=== PATIENT | female | born 1950 | race Caucasian/White ===

== ENCOUNTER 2020-03-02 15:09 | Outpatient (CLI) | payer MEDICARE, SELFPAY ==
--- NOTE | ~2020-03-02 | CT_ITS ---
EXAMINATION: CT abdomen pelvis wo con EXAM DATE: 03/02/2020 15:38 INDICATION: Right flank pain; stone protocol. TECHNIQUE: Spiral CT of the abdomen and pelvis was performed without contrast. Axial, coronal and sag ittal images were reviewed. The dose-length product (DLP) for this examination was 1449.97 mGy-cm. The exposure was tailored according to patient size (auto mA exposure control), and iterative reconst ruction (ASIR) was used as additional dose reduction technique. There is no prior study for comparis on. FINDINGS: Punctate left inferior calyceal stone. No ureteral stones or hydronephrosis. The uterus is not identified and has likely been surgically resected. The bladder is unremarkable. The liver, sp willa, adrenal glands and pancreas are unremarkable. There are cholecystectomy clips. Small umbilical fat-containing hernia. There is no retroperitoneal or pelvic lymphadenopathy. There is mild scatt ered arteriosclerotic disease. The appendix is normal. The stomach and small bowel are unremarkable. There is mild to moderate scat tered colonic diverticulosis. There is no adjacent inflammatory change to suggest diverticulitis. Th ere is expected amount of colonic stool. No free intraperitoneal gas. Mild cardiomegaly. The hu g bases are unremarkable. There is a hemangioma within the T7 vertebral body. IMPRESSION: 1. Punctate left nephrolithiasis. 2. Mild to moderate colonic diverticulosis. 3. Small umbilical hernia. 4. No acute findings. Reviewed, dictated and finalized at location A. [employer]
== END 2020-03-02 15:10 | disposition home or self-care (01) ==
LOC: ANHIMG 15:18
PROVIDERS: PCP Family Medicine; Visit Provider Physician Assistant
DX: N20.0 Calculus of kidney (principal); K57.30 Diverticulosis of large intestine without perforation or abscess without bleeding; K42.9 Umbilical hernia without obstruction or gangrene
CPT/HCPCS: 74176

== ENCOUNTER 2020-12-05 14:54 | Emergency (ER) | payer MEDICARE, SELFPAY ==
[2020-12-05 15:00] VITALS: BP 166/67; PULSE 64; RESP 18; TEMP 36; O2SAT 100
--- NOTE | 2020-12-05 15:02 | ED.BACK ---
HPI - Back Pain/Injury General Chief Complaint: Back Pain/Injury Stated Complaint: pain between shoulder blades Time Seen by Provider: 12/05/20 15:02 Source: patient and RN notes reviewed Mode of arrival: ambulatory Limitations: no limitations History of Present Illness HPI Narrative: 70-year-old female presents to the [facility] with complaints of back pain after pulling weeds in her yard. Pain is worse with movement. Has a history of back pain for many years, states the weeds just aggravated it. Took some Tylenol yesterday and currently has a pain patch on it. Had been prescribed prednisone weeks ago by her primary for the same issue but never took them. Patient plans to be taking the prednisone tonight Denies any numbness or tingling. No chest pain or shortness of breath. No abdominal pain. Related Data Home Medications Medication Instructions Recorded Confirmed cholecalciferol (vitamin D3) 125 125 mcg PO DAILY 12/31/19 03/07/20 mcg (5,000 unit) capsule glucosamine [id number] 1 tablet PO DAILY 12/31/19 03/07/20 joselyn 1,500 mg-400 unit-100 mg tablet Allergies Allergy/AdvReac Type Severity Reaction Status Date / Time aspirin Allergy Unknown Nausea Verified 11/28/20 14:11 atorvastatin Allergy Unknown muscle Verified 11/28/20 14:11 cramps celecoxib Allergy Unknown Itching Verified 11/28/20 14:11 ezetimibe Allergy Unknown leg cramps Verified 11/28/20 14:11 fenofibrate Allergy Unknown Skin Verified 11/28/20 14:11 Reaction omega-3 acid ethyl esters Allergy Unknown Nausea Verified 11/28/20 14:11 [Lovaza] pitavastatin [Livalo] Allergy Unknown Nausea Verified 11/28/20 14:11 rosuvastatin Allergy Unknown leg cramps Verified 11/28/20 14:11 simvastatin [Vytorin] Allergy Unknown leg cramps Verified 11/28/20 14:11 Review of Systems Review of Systems: All systems reviewed & are unremarkable except as noted in HPI and below Constitutional: Constitutional: Reports no additional constitutional complaints, Denies chills and Denies fever(s) Eyes: Eyes: Reports no additional eye complaints ENT: Reports system reviewed and no additional complaints, except as documented Cardiovascular: Cardiovascular: Reports no additional cardiovascular complaints and Denies chest pain Respiratory: Respiratory: Reports no additional respiratory complaints, Denies cough, Denies dyspnea and Denies wheezing Gastrointestinal: Gastrointestinal: Reports no additional gastrointestinal complaints Musculoskeletal: Musculoskeletal: Reports as per HPI, Reports back pain (Upper around left scapula), Denies myalgias, Denies arthralgias, Denies joint swelling and Denies muscle cramps Integumentary/Breasts: Skin/Breast: Reports system reviewed and no additional complaints, except as docu Neurologic: Reports system reviewed and no additional complaints, except as documented Psychiatric: Psychiatric: Reports no additional psychiatric complaints Allergic/Immunologic: Allergic/Immunologic: Reports no additional allergic/immunologic complaints [facility] Past Medical History Medical History TMJ (dislocation of temporomandibular joint) Surgical History Surgical History H/O neck surgery H/O: hysterectomy History of cholecystectomy History of knee replacement (~03/2008) Family History Family History Father Family history of malignant neoplasm, Onset Age: 52 Patient's father is Mother Family history of malignant neoplasm Hypertension Carcinoma of colon, Onset Age: 61 Sibling Carcinoma of colon Other Diabetes mellitus Family history of allergic disorder Social History Social History Alcohol intake: never Comments At the time of my signature, I reviewed and agree with the nursing past medical, surgical, social, and famil
== END 2020-12-05 15:22 | disposition home or self-care (01) ==
PROVIDERS: Emergency Provider Nurse Practitioner; PCP Family Medicine
DX: M54.6 Pain in thoracic spine (principal); Z96.659 Presence of unspecified artificial knee joint; I10 Essential (primary) hypertension; E03.9 Hypothyroidism, unspecified
CPT/HCPCS: 99213; G0463

== ENCOUNTER → 2020-12-06 13:57 | Outpatient (CLI) | payer MEDICARE, SELFPAY ==
--- NOTE | ~2020-12-06 | XR_ITS ---
EXAMINATION: XR shoulder LT min 2V DATE: 12/06/2020 14:28 INDICATION: Left shoulder pain. TECHNIQUE: 4 views of left shoulder were obtained. COMPARISON: None. FINDINGS: Bone alignment is normal. No fracture. There is mild osteoarthritis of glenohumeral joint a nd severe osteoarthritis of acromioclavicular joint. There are changes of anterior fusion procedure i n cervical spine. IMPRESSION: 1. Polyarticular osteoarthritis. Reviewed, dictated and finalized at location A.
--- NOTE | ~2020-12-06 | XR_ITS ---
XR lumbar spine 2-3V 12/06/2020 14:28 Indication: Back pain Procedure: 3 views lumbar spine Comparison: 05/07/2010 Findings: There is disc narrowing at all lumbar levels which has progressed since prior examination. There is moderate multilevel facet hypertrophy with grade 1 degenerative spondylolisthesis at L4-5. V ertebral body heights are preserved. No acute fracture. Mild dextrocurvature of the lumbar spine. The re are cholecystectomy clips. Impression: 1: Interval progression of moderate-severe lumbar spondylosis. Reviewed, dictated and finalized at location A. Impression: 1: Interval progression of moderate-severe lumbar spondylosis.
== END ==
PROVIDERS: PCP Family Medicine; Visit Provider Physician Assistant
DX: M47.896 Other spondylosis, lumbar region (principal); M19.012 Primary osteoarthritis, left shoulder
CPT/HCPCS: 72100; 73030

== ENCOUNTER 2021-02-27 08:35 | Outpatient (CLI) | payer MEDICARE, SELFPAY ==
--- NOTE | ~2021-02-27 | MM_ITS ---
EXAMINATION: MM screening constantin BI w coby HISTORY: Screening mammogram, family history of breast cancer in her sister. TECHNIQUE: Craniocaudal and mediolateral oblique 3-D tomosynthesis images were obtained and synthetic 2-D images were generated. CAD analysis was submitted and interpreted. COMPARISON: 03/11/2018, 03/07/2017, 02/16/2016 BREAST PARENCHYMAL COMPOSITION: The breasts are heterogeneously dense, which may obscure small masses . FINDINGS: There is no evidence of suspicious mass, calcification, or architectural distortion to sugg est malignancy in either breast. There has been no suspicious interval change. IMPRESSION: 1. No mammographic evidence of malignancy. 2. Recommend routine screening mammography in one year. BI-RADS Category 1: Negative Reviewed, dictated and finalized at location A. CONSULTANT
== END 2021-02-27 08:36 | disposition home or self-care (01) ==
PROVIDERS: PCP Family Medicine; Visit Provider Obstetrics & Gynecology
DX: Z12.31 Encounter for screening mammogram for malignant neoplasm of breast (principal)
CPT/HCPCS: 77063; 77067

== ENCOUNTER → 2021-12-05 12:51 | Outpatient (CLI) | payer MEDICARE, SELFPAY ==
--- NOTE | ~2021-12-05 | XR_ITS ---
XR hip LT 2V w AP pelvis 12/05/2021 13:03 Indication: Left hip pain Procedure: 3 views left hip Comparison: 10/13/2018 Findings: Mild osteoarthritis of the left hip. No fracture, subluxation or dislocation. Pelvic rings are intact. Sacral foramen are symmetric. No significant soft tissue abnormality. Nonobstructive annia l gas pattern. Moderate colonic fecal loading. Impression: 1: Mild osteoarthritis of the left hip. Reviewed, dictated and finalized at location A. Impression: 1: Mild osteoarthritis of the left hip.
== END ==
PROVIDERS: PCP Emergency Medicine; Visit Provider Physician Assistant
DX: M16.12 Unilateral primary osteoarthritis, left hip (principal)
CPT/HCPCS: 73502

== ENCOUNTER 2022-05-01 09:00 | Outpatient (CLI) | payer MEDICARE, SELFPAY ==
--- NOTE | ~2022-05-01 | MM_ITS ---
EXAMINATION: MM screening constantin BI w coby HISTORY: Screening mammogram TECHNIQUE: Craniocaudal and mediolateral oblique 3-D tomosynthesis images were obtained and synthetic 2-D images were generated. CAD analysis was submitted and interpreted. COMPARISON: 02/27/2021, 03/11/2018, 03/07/2017 bilateral screening mammogram examinations BREAST PARENCHYMAL COMPOSITION: There are scattered areas of fibroglandular density. FINDINGS: Biopsy marker on the right; history of prior benign right breast biopsy. Stable small opaci ty with benign-appearing microcalcifications in the posterior upper left breast, not significant penny ged since 03/07/2017. There is no evidence of suspicious mass, calcification, or architectural distor tion to suggest malignancy in either breast. There has been no suspicious interval change. IMPRESSION: 1. No mammographic evidence of malignancy. 2. Recommend routine screening mammography in one year. BI-RADS Category 2: Benign finding(s). Reviewed, dictated and finalized at location A. 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
== END 2022-05-01 09:01 | disposition home or self-care (01) ==
PROVIDERS: PCP Emergency Medicine; Visit Provider Obstetrics & Gynecology
DX: Z12.31 Encounter for screening mammogram for malignant neoplasm of breast (principal)
CPT/HCPCS: 77063; 77067

== ENCOUNTER 2022-05-02 01:06 | Day surgery (SDC) | payer MEDICARE, SELFPAY ==
[2022-04-18 09:45] VITALS: BMI 31.1
[2022-04-25 07:50] VITALS: BP 113/75; PULSE 67; RESP 13; O2SAT 98
--- NOTE | 2022-05-01 13:10 | PM.HPGS ---
History of Present Illness History of Present Illness Consent: Risks, benefits, and alternatives have been discussed and questions answered. Patient agrees to proceed with procedure. Chief complaint: neoplasm screening Narrative: Cassandra Romero is a 71 year old female Referred for colon cancer screening. Her last colonoscopy was 5 years ago. Her mother and sister have had colon cancer. She herself has had a polyp in the past. 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 Surgical History Surgical History H/O cervical spine surgery H/O neck surgery H/O: hysterectomy History of cholecystectomy History of knee replacement (~03/2008) Family History Family History Father Family history of malignant neoplasm, Onset Age: 52 Patient's father is Mother Family history of malignant neoplasm Hypertension Carcinoma of colon, Onset Age: 61 Sibling Carcinoma of colon Other Diabetes mellitus Family history of allergic disorder Social History Social History Smoking status: Never smoker Alcohol intake: never Substance use type: does not use Living arrangements: with family Spiritual care concerns: No Meds Home Medications and Allergies Home Medications Medication Instructions Recorded Confirmed Type glucosamine [id number] 1 tablet PO DAILY 12/31/19 05/02/22 History joselyn 1,500 mg-400 unit-100 mg tablet (Glucosamine Daily Complex) metoprolol succinate 100 mg 100 mg PO DAILY #90 tabs 03/12/22 05/02/22 Rx tablet,extended release 24 hr losartan 50 mg-hydrochlorothiazide 1 tablet PO DAILY #90 tabs 04/08/22 05/02/22 Rx 12.5 mg tablet Liver Antioxidant Extract 1 cap PO DAILY 04/18/22 05/02/22 History Pc Liver And Brain Support 1 cap PO DAILY 04/18/22 05/02/22 History Phytoceramides 1 cap PO DAILY 04/18/22 05/02/22 History acai lloyd extract 500 mg capsule 500 mg PO DAILY 04/18/22 05/02/22 History levothyroxine 75 mcg tablet 75 mcg PO DAILY 04/18/22 05/02/22 History multivitamin 1 tablet PO DAILY 04/18/22 05/02/22 History omega 2-uvc-fak-fish oil 100 1 cap PO DAILY 04/18/22 05/02/22 History mg-150 mg-750 mg capsule tumeric 100 mg-danial 150 mg-olive 1 cap PO DAILY 04/18/22 05/02/22 History 50 mg-oreg 150 mg-caprylate capsule Allergies Allergy/AdvReac Type Severity Reaction Status Date / Time aspirin Allergy Unknown Nausea Verified 05/02/22 06:16 celecoxib Allergy Unknown Itching Verified 05/02/22 06:16 atorvastatin AdvReac Unknown muscle Verified 05/02/22 06:16 cramps ezetimibe AdvReac Unknown leg cramps Verified 05/02/22 06:16 fenofibrate AdvReac Unknown Skin Verified 05/02/22 06:16 Reaction omega-3 acid ethyl esters AdvReac Unknown Nausea Verified 05/02/22 06:16 [Lovaza] pitavastatin [Livalo] AdvReac Unknown Nausea Verified 05/02/22 06:16 rosuvastatin AdvReac Unknown leg cramps Verified 05/02/22 06:16 simvastatin [Vytorin] AdvReac Unknown leg cramps Verified 05/02/22 06:16 Exam Const: General: alert Orientation/consciousness: patient oriented x3 Resp: Auscultation: clear to auscultation bilaterally Cardio: Rhythm: regular rhythm GI: GI Palp: Yes Soft to palpation and No Tenderness to palpation present (GI) Neuro: General: patient oriented x3 Assessment and Plan Assessment and plan (1) Colon cancer screening: Code(s): Z12.11 - Encounter for screening for malignant neoplasm of colon Status: Acute Assessment and Plan: Colonoscopy with possible biopsy or polypectomy or cautery or injection of s
[2022-05-02 06:17] VITALS: BP 154/72; PULSE 58; RESP 16; TEMP 35.9; O2SAT 98
[2022-05-02] MEDS: LACTATED RINGERS 1,000 ML 150 ML IV CONT (06:20)
--- NOTE | 2022-05-02 06:44 | WPDANESEPPF ---
Anes - Initial Pre Proc Eval Procedure: Operation Date: 05/02/22 07:30 Proposed Procedures p Screening Colonoscopy - Brady Quach MD Date/Time: 05/02/22 06:44 Surgeon: Brady Quach MD Pre Op Diagnosis: neoplasm screening Patient Data Age: 71 Gender: F Height: 1.7 m Weight: 88.2 kg Last Vital Signs Temp 35.9 C L 05/02/22 06:17 Pulse 58 L 05/02/22 06:17 Resp 16 05/02/22 06:17 BP 154/72 H 05/02/22 06:17 Pulse Ox 98 05/02/22 06:17 O2 Del Method Room Air 05/02/22 06:17 Allergies Allergy/AdvReac Type Severity Reaction Status Date / Time aspirin Allergy Unknown Nausea Verified 05/02/22 06:16 celecoxib Allergy Unknown Itching Verified 05/02/22 06:16 atorvastatin AdvReac Unknown muscle Verified 05/02/22 06:16 cramps ezetimibe AdvReac Unknown leg cramps Verified 05/02/22 06:16 fenofibrate AdvReac Unknown Skin Verified 05/02/22 06:16 Reaction omega-3 acid ethyl esters AdvReac Unknown Nausea Verified 05/02/22 06:16 [Lovaza] pitavastatin [Livalo] AdvReac Unknown Nausea Verified 05/02/22 06:16 rosuvastatin AdvReac Unknown leg cramps Verified 05/02/22 06:16 simvastatin [Vytorin] AdvReac Unknown leg cramps Verified 05/02/22 06:16 Home Medications Medication Instructions Recorded Confirmed Type glucosamine [id number] 1 tablet PO DAILY 12/31/19 05/02/22 History joselyn 1,500 mg-400 unit-100 mg tablet (Glucosamine Daily Complex) metoprolol succinate 100 mg 100 mg PO DAILY #90 tabs 03/12/22 05/02/22 Rx tablet,extended release 24 hr losartan 50 mg-hydrochlorothiazide 1 tablet PO DAILY #90 tabs 04/08/22 05/02/22 Rx 12.5 mg tablet Liver Antioxidant Extract 1 cap PO DAILY 04/18/22 05/02/22 History Pc Liver And Brain Support 1 cap PO DAILY 04/18/22 05/02/22 History Phytoceramides 1 cap PO DAILY 04/18/22 05/02/22 History acai lloyd extract 500 mg capsule 500 mg PO DAILY 04/18/22 05/02/22 History levothyroxine 75 mcg tablet 75 mcg PO DAILY 04/18/22 05/02/22 History multivitamin 1 tablet PO DAILY 04/18/22 05/02/22 History omega 7-vhx-dsv-fish oil 100 1 cap PO DAILY 04/18/22 05/02/22 History mg-150 mg-750 mg capsule tumeric 100 mg-danial 150 mg-olive 1 cap PO DAILY 04/18/22 05/02/22 History 50 mg-oreg 150 mg-caprylate capsule Patient hx anesthesia problems: none Family hx anesthesia problems: none Results Review: All pre-operative results and documents have been reviewed as part of the pre-operative evaluation. 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 Surgical History Surgical History (Updated 05/02/22 @ 06:45 by Garth Cline MD) H/O cervical spine surgery H/O neck surgery H/O: hysterectomy History of cholecystectomy History of knee replacement (~03/2008) Family History Family History Father Family history of malignant neoplasm, Onset Age: 52 Patient's father is Mother Family history of malignant neoplasm Hypertension Carcinoma of colon, Onset Age: 61 Sibling Carcinoma of colon Other Diabetes mellitus Family history of allergic disorder Social History Social History Smoking status: Never smoker Alcohol intake: never Substance use type: does not use Living arrangements: with family Spiritual care concerns: No Anes - Eval Final PreProcedure Day of Procedure 05/02/22 06:44 Patient weight: obese Heart: regular rate and rhythm Lungs: clear to auscultation Airway: Mallampati scale class II Neurological: alert and oriented Last oral intake: >/= 8 hours ASA classification: II Emergent: no Anesthetic plan: proceed Anesthesia type and monitoring: general GIVS and standard monitoring Results Review: All pre-operative results and documen
[2022-05-02 07:50] VITALS: BP 118/58; PULSE 50; RESP 20; O2SAT 100
[2022-05-02 08:00] VITALS: BP 125/87; PULSE 52; RESP 19; O2SAT 99
[2022-05-02 08:10] VITALS: BP 110/77; PULSE 50; RESP 20; O2SAT 99
== END 2022-05-02 08:24 | disposition home or self-care (01) ==
PROVIDERS: PCP Emergency Medicine; Visit Provider Internal Medicine Gastroenterology
PROC: 0DJD8ZZ Inspection of Lower Intestinal Tract, Via Natural or Artificial Opening Endoscopic (ICD-10-PCS; CPT 45378; principal; 2022-05-02 07:30)
DX: Z12.11 Encounter for screening for malignant neoplasm of colon (principal); D12.5 Benign neoplasm of sigmoid colon; K57.30 Diverticulosis of large intestine without perforation or abscess without bleeding; Z80.0 Family history of malignant neoplasm of digestive organs; I10 Essential (primary) hypertension; E66.9 Obesity, unspecified; Z68.30 Body mass index [BMI] 30.0-30.9, adult
CPT/HCPCS: 45385; 88305; J2704; J7120

== ENCOUNTER 2023-03-18 00:45 | Day surgery (SDC) | payer MEDICARE, SELFPAY ==
[2023-03-07 10:19] VITALS: BMI 33.8
--- NOTE | 2023-03-14 10:08 | SUR.PREOP ---
Patient called regarding upcoming procedure. Reviewed preop instructions, appointment times, and procedure prep.
--- NOTE | 2023-03-14 14:09 | PM.HPGS ---
History of Present Illness History of Present Illness Consent: Risks, benefits, and alternatives have been discussed and questions answered. Patient agrees to proceed with procedure. Chief complaint: Dysphagia Narrative: Cassandra Romero is a 72 year old female Who feels that food gets stuck in her chest.? Primarily this happens with bread, sometimes meat.? It started perhaps 2 years ago and is sporadic.? She has not lost weight in fact has gained weight over the past year.? She denies chronic heartburn but occasionally will get heartburn if she drinks too much water before bedtime.? 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 Surgical History Surgical History H/O cervical spine surgery H/O neck surgery H/O: hysterectomy History of cholecystectomy History of knee replacement (~03/2008) Family History Family History Father Family history of malignant neoplasm, Onset Age: 52 Patient's father is Mother Family history of malignant neoplasm Hypertension Carcinoma of colon, Onset Age: 61 Sibling Carcinoma of colon Other Diabetes mellitus Family history of allergic disorder Social History Social History Smoking status: Never smoker Alcohol intake: never Substance use type: does not use Concerned About Future Housing: Decline to Answer Difficulty Paying Gas/Electric Bills: Decline to Answer Difficulty Paying for Meds: Decline to Answer Currently Unemployed: Decline to Answer Education: Decline to Answer Difficulty w/ Childcare or Family Care: Decline to Answer Living arrangements: with family Spiritual care concerns: No Meds Home Medications and Allergies Home Medications Medication Instructions Recorded Confirmed Type glucosamine [id number] 1 tablet PO DAILY 12/31/19 03/18/23 History joselyn 1,500 mg-400 unit-100 mg tablet (Glucosamine Daily Complex) Liver Antioxidant Extract 1 cap PO DAILY 04/18/22 03/18/23 History Pc Liver And Brain Support 1 cap PO DAILY 04/18/22 03/18/23 History Phytoceramides 1 cap PO DAILY 04/18/22 03/18/23 History multivitamin 1 tablet PO DAILY 04/18/22 03/18/23 History tumeric 100 mg-danial 150 mg-olive 1 cap PO DAILY 04/18/22 03/18/23 History 50 mg-oreg 150 mg-caprylate capsule metoprolol succinate 100 mg 100 mg PO DAILY #90 tabs 07/26/22 03/18/23 Rx tablet,extended release 24 hr losartan 50 mg-hydrochlorothiazide 1 tablet PO DAILY #90 tabs 02/07/23 03/18/23 Rx 12.5 mg tablet levothyroxine 75 mcg tablet 75 mcg PO DAILY #90 tabs 02/17/23 03/18/23 Rx omeprazole 20 mg capsule,delayed 20 mg PO .PRN 03/04/23 03/18/23 History release Allergies Allergy/AdvReac Type Severity Reaction Status Date / Time aspirin Allergy Unknown Nausea Verified 03/18/23 06:43 celecoxib Allergy Unknown Itching Verified 03/18/23 06:43 atorvastatin AdvReac Unknown muscle Verified 03/18/23 06:43 cramps ezetimibe AdvReac Unknown leg cramps Verified 03/18/23 06:43 fenofibrate AdvReac Unknown Skin Verified 03/18/23 06:43 Reaction omega-3 acid ethyl esters AdvReac Unknown Nausea Verified 03/18/23 06:43 [Lovaza] pitavastatin [Livalo] AdvReac Unknown Nausea Verified 03/18/23 06:43 rosuvastatin AdvReac Unknown leg cramps Verified 03/18/23 06:43 simvastatin [Vytorin] AdvReac Unknown leg cramps Verified 03/18/23 06:43 Exam Const: General: alert Orientation/consciousness: patient oriented x3 Resp: Auscultation: clear to auscultation bilaterally Cardio: Rhythm: regular rhythm GI: GI Palp: Yes Soft to palpatio
[2023-03-18 06:45] VITALS: BP 158/68; PULSE 67; RESP 17; TEMP 35.8; O2SAT 96; BMI 33.9
[2023-03-18] MEDS: LACTATED RINGERS 1,000 ML 150 ML IV CONT (06:54)
--- NOTE | 2023-03-18 07:43 | WPDANESEPPF ---
Anes - Initial Pre Proc Eval Procedure: Operation Date: 03/18/23 08:00 Proposed Procedures p Esophagogastroduodenoscopy - Brady Quach MD Date/Time: 03/18/23 07:43 Surgeon: Brady Quach MD Pre Op Diagnosis: Dysphagia Patient Data Age: 72 Gender: F Height: 1.7 m Weight: 98.3 kg Last Vital Signs Temp 96.4 F L 03/18/23 06:45 Pulse 67 03/18/23 06:45 Resp 17 03/18/23 06:45 BP 158/68 H 03/18/23 06:45 Pulse Ox 96 03/18/23 06:45 O2 Del Method Room Air 03/18/23 06:45 Allergies Allergy/AdvReac Type Severity Reaction Status Date / Time aspirin Allergy Unknown Nausea Verified 03/18/23 06:43 celecoxib Allergy Unknown Itching Verified 03/18/23 06:43 atorvastatin AdvReac Unknown muscle Verified 03/18/23 06:43 cramps ezetimibe AdvReac Unknown leg cramps Verified 03/18/23 06:43 fenofibrate AdvReac Unknown Skin Verified 03/18/23 06:43 Reaction omega-3 acid ethyl esters AdvReac Unknown Nausea Verified 03/18/23 06:43 [Lovaza] pitavastatin [Livalo] AdvReac Unknown Nausea Verified 03/18/23 06:43 rosuvastatin AdvReac Unknown leg cramps Verified 03/18/23 06:43 simvastatin [Vytorin] AdvReac Unknown leg cramps Verified 03/18/23 06:43 Home Medications Medication Instructions Recorded Confirmed Type glucosamine [id number] 1 tablet PO DAILY 12/31/19 03/18/23 History joselyn 1,500 mg-400 unit-100 mg tablet (Glucosamine Daily Complex) Liver Antioxidant Extract 1 cap PO DAILY 04/18/22 03/18/23 History Pc Liver And Brain Support 1 cap PO DAILY 04/18/22 03/18/23 History Phytoceramides 1 cap PO DAILY 04/18/22 03/18/23 History multivitamin 1 tablet PO DAILY 04/18/22 03/18/23 History tumeric 100 mg-danial 150 mg-olive 1 cap PO DAILY 04/18/22 03/18/23 History 50 mg-oreg 150 mg-caprylate capsule metoprolol succinate 100 mg 100 mg PO DAILY #90 tabs 07/26/22 03/18/23 Rx tablet,extended release 24 hr losartan 50 mg-hydrochlorothiazide 1 tablet PO DAILY #90 tabs 02/07/23 03/18/23 Rx 12.5 mg tablet levothyroxine 75 mcg tablet 75 mcg PO DAILY #90 tabs 02/17/23 03/18/23 Rx omeprazole 20 mg capsule,delayed 20 mg PO .PRN 03/04/23 03/18/23 History release Patient hx anesthesia problems: none Family hx anesthesia problems: none Results Review: All pre-operative results and documents have been reviewed as part of the pre-operative evaluation. 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 Surgical History Surgical History H/O cervical spine surgery H/O neck surgery H/O: hysterectomy History of cholecystectomy History of knee replacement (~03/2008) Family History Family History Father Family history of malignant neoplasm, Onset Age: 52 Patient's father is Mother Family history of malignant neoplasm Hypertension Carcinoma of colon, Onset Age: 61 Sibling Carcinoma of colon Other Diabetes mellitus Family history of allergic disorder Social History Social History Smoking status: Never smoker Alcohol intake: never Substance use type: does not use Concerned About Future Housing: Decline to Answer Difficulty Paying Gas/Electric Bills: Decline to Answer Difficulty Paying for Meds: Decline to Answer Currently Unemployed: Decline to Answer Education: Decline to Answer Difficulty w/ Childcare or Family Care: Decline to Answer Living arrangements: with family Spiritual care concerns: No Anes - Eval Final PreProcedure Day of Procedure 03/18/23 07:43 Patient weight: obese Heart: regular rate and rhythm Lungs: clear to auscultation Airway: Mallampati scale class II Neurological: alert and oriented Last oral intake:
[2023-03-18] MEDS: BENZOCAINE (*SP) 60 ML SPRAY CAN (HURRICAINE) 1 SPRAY MUCOUS MEM (07:53)
[2023-03-18 08:09] VITALS: BP 119/62; PULSE 57; RESP 22; O2SAT 95
[2023-03-18 08:19] VITALS: BP 133/72; PULSE 52; RESP 21; O2SAT 97
[2023-03-18 08:29] VITALS: BP 150/78; PULSE 53; RESP 24; O2SAT 100
== END 2023-03-18 08:44 | disposition home or self-care (01) ==
PROVIDERS: PCP Emergency Medicine; Visit Provider Internal Medicine Gastroenterology
PROC: 0DJ08ZZ Inspection of Upper Intestinal Tract, Via Natural or Artificial Opening Endoscopic (ICD-10-PCS; CPT 43235; principal; 2023-03-18 08:00)
DX: K22.2 Esophageal obstruction (principal); K21.00 Gastro-esophageal reflux disease with esophagitis, without bleeding; I10 Essential (primary) hypertension; E66.9 Obesity, unspecified; Z68.33 Body mass index [BMI] 33.0-33.9, adult
CPT/HCPCS: 43249; 88305; C1726; J2704; J7120

== ENCOUNTER 2023-05-08 07:25 | Outpatient (CLI) | payer MEDICARE, SELFPAY ==
--- NOTE | 2023-05-08 07:31 | ECHO_ITS ---
Patient Info Name: Cassandra Romero Age: 72 years : 1950 Gender: Female Ht: 67 in Wt: 217 lbs BSA: 2.19 m2 HR: 63 bpm BP: 144 / 80 mmHg Technical Quality: Good Exam Date: 05/08/2023 7:40 AM Exam Location: Echo Lab Patient Status: Outpatient Admit Date: 05/08/2023 Staff Ordering Physician: Jorden Wall MD Depilatory Painter: Attending Provider: Jorden Wall MD Referring Physician: Duke MONTIEL; Exam Type: CA echo doppler color flow Study Info Indications R01.1 - Cardiac murmur, unspecified Complete two-dimensional, color flow and Doppler transthoracic echocardiogram is performed. Summary 1. Complete two-dimensional, color flow and Doppler transthoracic echocardiogram is performed. 2. Left ventricular chamber dimension is normal. 3. Left ventricular systolic function is normal, estimated at 60-65%. 4. The left ventricular diastolic function is grade I diastolic dysfunction. 5. E/e' 9 is minimally elevated. 6. Left atrial chamber dimension is mildly enlarged. 7. There is mild aortic valve sclerosis. 8. The mitral valve has mildly calcified annulus. 9. There is trace tricuspid valve regurgitation. Left Ventricle E/e' 9 is minimally elevated. Left ventricular chamber dimension is normal. Left ventricular systolic function is normal, estimated at 60-65%. The left ventricular diastolic function is grade I diastolic dysfunction. Right Ventricle Right ventricular systolic function is normal and with normal TAPSE 2.3 cm. Right ventricular chamber dimension is normal. Left Atria Left atrial chamber dimension is mildly enlarged. Right Atria Right atrial chamber dimension is normal. Aortic Valve The aortic valve is trileaflet. There is mild aortic valve sclerosis. There is no aortic valve stenosis. There is no aortic valve regurgitation. Pulmonic Valve There is no pulmonic regurgitation. Mitral Valve The mitral valve has mildly calcified annulus. There is no mitral valve stenosis. There is no mitral valve regurgitation. Tricuspid Valve RVSP is not calculated due to an inadequate TR jet. There is trace tricuspid valve regurgitation. Pericardium/Pleural There is no pericardial effusion. Inferior Vena Cava Normal inferior vena cava with >50% collapse upon inspiration consistent with normal right atrial pressure, 5 mmHg. Aorta The aortic root size at the sinus of Valsalva is normal. Left Ventricular Outflow Tract Name Value Normal LVOT 2D LVOT Diameter 2.0 cm LVOT Doppler LVOT Peak Gradient 6 mmHg LVOT Mean Gradient 3 mmHg LVOT VTI 31 cm LVOT VTI/AV VTI Ratio 0.7 LVOT Stroke Volume 98 ml LVOT CO 6.0 l/min LVOT CI 2.7 l/min/m2 Pulmonic Valve Name Value Normal PV Doppler PV Peak Gradient 5 mmHg
== END 2023-05-08 07:26 | disposition home or self-care (01) ==
LOC: ANHCARD 07:26
PROVIDERS: PCP Emergency Medicine; Visit Provider Emergency Medicine
DX: R01.1 Cardiac murmur, unspecified (principal); I10 Essential (primary) hypertension
CPT/HCPCS: 93306

== ENCOUNTER 2023-05-14 07:42 | Outpatient (CLI) | payer MEDICARE, SELFPAY ==
--- NOTE | ~2023-05-14 | MM_ITS ---
EXAMINATION: MM screening constantin BI w coby HISTORY: Screening TECHNIQUE: Craniocaudal and mediolateral oblique 3-D tomosynthesis images were obtained and synthetic 2-D images were generated. CAD analysis was submitted and interpreted. COMPARISON: Comparison to multiple prior studies sequentially, with oldest reviewed study dated 04/2015. BREAST PARENCHYMAL COMPOSITION: Not dense: There are scattered areas of fibroglandular density. FINDINGS: There are developing bilateral breast asymmetries. There are no suspicious calcifications. IMPRESSION: 1. Developing bilateral breast asymmetries centered in the upper outer quadrant of the right breast a nd upper central aspect of the left breast 2. Additional mammographic views and possible breast ultrasound are recommended. BI-RADS Category 0: Incomplete: Needs additional imaging evaluation. Reviewed, dictated and finalized at location A. ING DIE FINISHER IMPRESSION: 1. Developing bilateral breast asymmetries centered in the upper outer quadrant of the right breast and upper central aspect of the left breast 2. Additional mammographic views and possible breast ultrasound are recommended . BI-RADS Category 0: Incomplete: Needs additional imaging evaluation.
== END 2023-05-14 07:43 | disposition home or self-care (01) ==
LOC: ANHIMG 07:43
PROVIDERS: PCP Emergency Medicine; Visit Provider Obstetrics & Gynecology
DX: Z12.31 Encounter for screening mammogram for malignant neoplasm of breast (principal); R92.8 Other abnormal and inconclusive findings on diagnostic imaging of breast
CPT/HCPCS: 77063; 77067

== ENCOUNTER 2023-06-03 13:24 | Emergency (ER) | payer MEDICARE, SELFPAY ==
[2023-06-03 13:35] VITALS: BP 168/73; PULSE 68; RESP 16; TEMP 36.3; O2SAT 100
--- NOTE | 2023-06-03 14:10 | ED.GENADULT ---
HPI - General Adult General Chief complaint: Extremity Problem,Nontraumatic Stated complaint: L LEG PAIN Time Seen by Provider: 06/03/23 14:11 Source: patient, RN notes reviewed and old records reviewed Mode of arrival: ambulatory Limitations: no limitations History of Present Illness HPI narrative: 73-year-old female presents to [facility] for complaint left lower back, left hip, left knee pain for 3 weeks. Patient endorses the wound pain 1st started she was seen by her primary care and given a prescription for Flexeril. Patient endorses history of sciatic and states muscle relaxers paired with home exercises usually help alleviate her symptoms. Patient was unsuccessful with alleviating symptoms at home with Flexeril, ice, heat and Tylenol. Patient endorses that pain radiates from lower back into left hip and down into the left knee. Patient describes pain as burning. Patient denies numbness or tingling. Patient able to ambulate to exam room with slow but steady gait. Related Data Home Medications Medication Instructions Recorded Confirmed glucosamine [id number] 1 tablet PO DAILY 12/31/19 06/03/23 joselyn 1,500 mg-400 unit-100 mg tablet (Glucosamine Daily Complex) Liver Antioxidant Extract 1 cap PO DAILY 04/18/22 06/03/23 Pc Liver And Brain Support 1 cap PO DAILY 04/18/22 06/03/23 Phytoceramides 1 cap PO DAILY 04/18/22 06/03/23 multivitamin 1 tablet PO DAILY 04/18/22 06/03/23 turmeric 100 mg-danial 150 1 cap PO DAILY 04/18/22 06/03/23 mg-olive 50 mg-oreg 150 mg-capryl capsule omeprazole 20 mg capsule,delayed 20 mg PO .PRN 03/04/23 06/03/23 release chondroitin sulfate A sodium 400 400 mg PO DAILY 04/25/23 06/03/23 mg capsule docosahexaenoic acid 200 mg 200 mg PO DIRECTED 04/25/23 06/03/23 capsule (Algal [place]-3 DHA) Allergies Allergy/AdvReac Type Severity Reaction Status Date / Time celecoxib Allergy Unknown Itching Verified 06/03/23 14:21 aspirin AdvReac Unknown Nausea Verified 06/03/23 14:21 atorvastatin AdvReac Unknown muscle Verified 06/03/23 14:21 cramps ezetimibe AdvReac Unknown leg cramps Verified 06/03/23 14:21 fenofibrate AdvReac Unknown Skin Verified 06/03/23 14:21 Reaction omega-3 acid ethyl esters AdvReac Unknown Nausea Verified 06/03/23 14:21 [Lovaza] pitavastatin [Livalo] AdvReac Unknown Nausea Verified 06/03/23 14:21 rosuvastatin AdvReac Unknown leg cramps Verified 06/03/23 14:21 simvastatin [Vytorin] AdvReac Unknown leg cramps Verified 06/03/23 14:21 Review of Systems Review of Systems: All systems reviewed & are unremarkable except as noted in HPI and below Constitutional: Constitutional: Reports no additional constitutional complaints and Denies weakness Eyes: Eyes: Reports no additional eye complaints ENT: Reports system reviewed and no additional complaints, except as documented Cardiovascular: Cardiovascular: Reports no additional cardiovascular complaints, Denies chest pain and Denies dyspnea Respiratory: Respiratory: Reports no additional respiratory complaints, Denies cough and Denies dyspnea Musculoskeletal: Musculoskeletal: Reports back pain ( Left lumbar), Denies muscle weakness, Denies numbness, Reports radiating pain into limb and Denies tingling Neurologic: Reports as per HPI, Denies Sensory deficit (Neuro), Denies tingling, Denies disequilibrium and Denies weakness Psychiatric: Psychiatric: Reports no additional psychiatric complaints [facility] Past Medical History Medical History (Updated 06/03/23 @ 14:36 by Holli Rincon APRN) HTN (hypertension) TMJ (dislocation of temporomandibular joint) TMJ arthropathy surgery in 1981 Surgical History Surgical History (Updated 04/25/23 @ 13:42 by Jorden Wall MD) H/O cervical spine surgery H/O neck surgery H/O: hysterectomy History of cholecystectomy History of knee replacement (~03/2008) Family History Family History (Reviewed 04/25/23 @ 13:11 by Sari Real MA
== END 2023-06-03 14:37 | disposition home or self-care (01) ==
PROVIDERS: Emergency Provider Nurse Practitioner Family; PCP Emergency Medicine
DX: M54.50 Low back pain, unspecified (principal); M25.562 Pain in left knee; I10 Essential (primary) hypertension
CPT/HCPCS: 99213; G0463

== ENCOUNTER 2023-06-10 12:40 | Outpatient (CLI) | payer MEDICARE, SELFPAY ==
--- NOTE | ~2023-06-10 | MMUS_ITS ---
EXAMINATION: MM diagnostic constantin BI w coby, US breast BI complete HISTORY: Bilateral mammographic asymmetries reported on May 14, 2023 screening mammogram, in the upper outer quadrant of the right breast in upper central left breast TECHNIQUE: Additional 3-D tomosynthesis images of both breasts were performed and synthetic 2-D image s were generated. CAD analysis was submitted and interpreted. High resolution complete bilateral glenna st ultrasound examination including all 4 quadrants and subareolar areas was performed. COMPARISON: 05/14/2023, 05/01/2022, 02/27/2021, 03/11/2018 bilateral screening mammogram examinations FINDINGS: MAMMOGRAPHIC FINDINGS: Biopsy marker in the inner mid right breast; history of prior benign right breast biopsy. Fibroglandular asymmetry appears relatively stable since 03/11/2018. No suspicious mass or interval a rchitectural distortion, malignant calcification, skin thickening or retraction or significant new or developing density of either breast is evident. ULTRASOUND: Right breast: 2:00 2 cm from nipple: Irregular parallel hypoechoic approximately 7 x 4 x 10.8 mm lesion with some p osterior shadowing, no internal vascularity. Ultrasound-guided biopsy is recommended. No other suspicious mass or shadowing of right breast is detected. Left breast: No suspicious mass or shadowing, cyst or other significant finding is noted. IMPRESSION: 1. Indeterminate 7 x 4 x 10.8 mm irregular hypoechoic solid lesion of right breast 2:00 2 cm from nip ple 2. Ultrasound-guided biopsy of right breast 2:00 lesion is recommended BI-RADS category 4, suspicious findings. Reviewed, dictated and finalized at location A. IMPRESSION: 1. Indeterminate 7 x 4 x 10.8 mm irregular hypoechoic solid lesion of right murtaza ast 2:00 2 cm from nipple 2. Ultrasound-guided biopsy of right breast 2:00 lesion is recommended BI-RADS category 4, suspicious findings.
== END 2023-06-10 12:41 | disposition home or self-care (01) ==
PROVIDERS: PCP Emergency Medicine; Visit Provider Obstetrics & Gynecology
DX: R92.8 Other abnormal and inconclusive findings on diagnostic imaging of breast (principal)
CPT/HCPCS: 76641; 77062; 77066; G0279

== ENCOUNTER 2023-07-17 08:30 | Outpatient (CLI) | payer MEDICARE, SELFPAY ==
--- NOTE | ~2023-07-17 | MMUS_ITS ---
EXAMINATION: US GUIDED NEEDLE BIOPSY DATE: 07/17/2023 10:50 CDT INDICATION: Indeterminate irregular hypoechoic 7 x 4 x 10.8 mm right breast lesion at 2:00 2 cm from nipple reported on 06/0309/04/2023 EXAMINATION TECHNIQUE AND FINDINGS: The risks and potential benefits of the procedure were discussed with the patient, and written inform ed consent was obtained. Timeout procedure was performed. After sterile preparation of the right glenna st, 1% lidocaine was utilized for local anesthesia. A 12 G spring-loaded biopsy gun needle was advanced to the edge of the region of interest from a late ral approach utilizing sonographic guidance. A total of 4 tissue core samples were obtained through the lesion. An Inrad tissue marker clip was then placed at the biopsy site. Hemostasis was achieved. A sterile bandage was applied. The patient tolerated procedure well and there was no evidence of immediate complication. The patien t was given verbal instructions prior to departing from the department. A two view mammogram was perf ormed to document tissue marker clip placement. The tissue samples were submitted to surgical patholo gy for histologic analysis. The current biopsy marker is present at the same location as a prior right breast biopsy marker. IMPRESSION: Ultrasound guided biopsy of right 2:00 breast mass with biopsy marker placement. Please refer to path ology report for histologic analysis. Reviewed, dictated and finalized at Location A. Reviewed, dictated and finalized at location A. IMPRESSION: Ultrasound guided biopsy of right 2:00 breast mass with biopsy marker placement . Please refer to pathology report for histologic analysis.
== END 2023-07-17 08:31 | disposition home or self-care (01) ==
PROVIDERS: PCP Emergency Medicine; Visit Provider Surgery
DX: R92.8 Other abnormal and inconclusive findings on diagnostic imaging of breast (principal); N63.10 Unspecified lump in the right breast, unspecified quadrant
CPT/HCPCS: 19083; 88305; A4648

== ENCOUNTER 2023-07-23 11:00 | Outpatient (RCR) | payer MEDICARE, SELFPAY ==
--- NOTE | 2023-06-16 16:48 | OPREHPOC ---
Outpatient Therapy Plan of Care This is a Multidisciplinary Plan of Care that may contain components documented by all disciplines (PT, OT, and ST.) PT Problem 1 PT Problem #1 Knowledge Deficit PT Goal 1 Goal Pt to be IND with issued HEP Target Visit 8 PT Problem 2 PT Problem #2 Pain PT Goal 1 Goal Pt to report back pain no greater than 3/10 in the last week. Target Visit 8 PT Goal 2 Goal Pt to report 75% improvement in overall symptoms. Target Visit 8 PT Problem 3 PT Problem #3 Impaired Sensation PT Goal 1 Goal Pt to decline radicular symptoms in the last week. Target Visit 8 PT Goal 2 Goal Pt to report being able to sleep throughout the night without limitations d/t back pain. Target Visit 8 PT Problem 4 PT Problem #4 Impaired Functional Mobil PT Goal 1 Goal Pt to demonstrate a floor to stand transfer without external support Target Visit 8 PT Goal 2 Goal Pt to demonstrate a 30 lb functional lift and carry from ground level.
--- NOTE | 2023-06-16 16:48 | PTOPEVAL1 ---
Assessment and note entered by Rudy Hall, PT, DPT Evaluation Information Assessment Status Evaluation Diagnosis low back pain Onset 1 month Subjective Information Pt states she has chronic back pain that has been going on for years. She states she will get flair ups over the years but will get a muscle relaxer and these normally help, but the last 2 rounds have not. She declines a MONIKA. She states radiating , burning pain down her thigh into her knee. She states she has increased pain with stairs, getting in/out of the car, and difficulty sleeping at night. Pt is retired. Reported Pain Level Pain Score 4: Self Report Assessment PT Clinical Summary Cassandra presents to therapy today for her initial evaluation with a diagnosis of low back pain and reports of L sided radicular symptoms. Today she demonstrates decreased lumbar ROM in all directions as well as decreased L hip ROM compared to the R, both reportedly d/t pain. She demonstrates hip and core weakness. Her high pain reports limit her functional mobility. Skilled therapy services are indicated to address the deficits noted above, to manage pain, and to return to [facility]. Plan of Care Interventions Electrical Stimulation,Gait Training,Hot Pack/Cold Pack,Manual Therapy,Mechanical Traction,Neuro Re- education,Patient/Caregiver Educati,Therapeutic Activities,Therapeutic Exercise PT Services Indicated Yes Treatment Frequency and 2x/wk for 8 visits Duration These treatments will address the objective and functional deficits as defined above. The patient will be advanced safely and appropriately in order for the patient to progress towards his/her prior level of function. Additional exercises will be introduced and as well as a comprehensive home exercise program upon discharge, if needed, ?to ensure carryover of functional gains achieved in the clinic. This treatment plan has been reviewed and agreement upon by the patient.
--- NOTE | 2023-06-26 08:15 | PCPTNOTE ---
Patient unable to be seen June 24 due therapist out for illness.
--- NOTE | 2023-07-15 09:29 | PCPTNOTE ---
Patient cancelled today's Progress Visit.
--- NOTE | 2023-07-23 11:18 | OPREHPOC ---
Outpatient Therapy Plan of Care This is a Multidisciplinary Plan of Care that may contain components documented by all disciplines (PT, OT, and ST.) PT Problem 1 PT Problem #1 Knowledge Deficit PT Goal 1 Goal Pt to be IND with issued HEP Target Visit 8 Progress Met PT Problem 2 PT Problem #2 Pain PT Goal 1 Goal Pt to report back pain no greater than 3/10 in the last week. Target Visit 8 Progress Not Met PT Goal 2 Goal Pt to report 75% improvement in overall symptoms. Target Visit 8 Progress Not Met PT Problem 3 PT Problem #3 Impaired Sensation PT Goal 1 Goal Pt to decline radicular symptoms in the last week. Target Visit 8 Progress Not Met PT Goal 2 Goal Pt to report being able to sleep throughout the night without limitations d/t back pain. Target Visit 8 Progress Not Met PT Problem 4 PT Problem #4 Impaired Functional Mobil PT Goal 1 Goal Pt to demonstrate a floor to stand transfer without external support Target Visit 8 Progress Not Met PT Goal 2 Goal Pt to demonstrate a 30 lb functional lift and carry from ground level. Progress Not Met
--- NOTE | 2023-07-23 11:18 | PTOPDC ---
Assessment and note entered by Gay Morgan DPT Evaluation Information Assessment Status Discharge Diagnosis low back pain Onset 1 month Subjective Information Pt states she feels the same as starting therapy. Highest pain in last week 10/10 and lowest 0/10. Continues to have excruciating pain after walking 15 steps and needs to sit. Had to have a breast biopsy last week and has not done exercises since then per instruction. MRI performed 2 weeks ago and states it showed some arthritis. Will be getting sent for an injection but is unable to get in for a month. No return to MD scheduled. Reported Pain Level Pain Score 5: Self Report Assessment PT Clinical Summary The patient has reached a plateau in progress and discharge is recommended at this time. She reports no change to pain or function during therapy. She demonstrates somewhat improved walking speed but decreased strength. She has been educated in a final HEP and to follow up with MD. Plan of Care PT Services Indicated No
== END 2023-07-23 11:43 | disposition home or self-care (01) ==
LOC: ANHGOSHPT 11:00
PROVIDERS: PCP Emergency Medicine; Visit Provider Emergency Medicine
DX: M54.50 Low back pain, unspecified (principal); M47.16 Other spondylosis with myelopathy, lumbar region; G89.29 Other chronic pain
CPT/HCPCS: 97110; 97140; 97161; 97530

== ENCOUNTER 2023-09-12 11:08 | Outpatient (CLI) | payer MEDICARE, SELFPAY ==
--- NOTE | ~2023-09-12 | XR_ITS ---
AP and lateral views of the left hip Clinical history: Pain Findings: No acute fracture or dislocation is seen. Osseous alignment is anatomic. There is mild to m oderate degenerative change of the left hip joint.. Soft tissues are unremarkable. Impression: Mild to moderate degenerative change of the left hip joint. Reviewed, dictated and finalized at location . Impression: Mild to moderate degenerative change of the left hip joint.
== END 2023-09-12 11:09 ==
LOC: MICIMG 11:11
PROVIDERS: PCP Emergency Medicine; Visit Provider Anesthesiology Pain Medicine
DX: M16.12 Unilateral primary osteoarthritis, left hip (principal)
CPT/HCPCS: 73502

== ENCOUNTER 2023-10-21 08:31 | Day surgery (SDC) | payer MEDICARE, SELFPAY ==
[2023-10-07 08:09] VITALS: BMI 35.5
--- NOTE | ~2023-10-21 | XR_ITS ---
EXAMINATION: XR fluoroscopy no charge DATE: 10/21/2023 10:35 CDT INDICATION: LEFT L3-4,L4-5 TRANSFORAMINAL EPI STEROID INJ . TECHNIQUE: 5 fluoroscopic images and 2 cine clips of the lumbar spine were obtained during left L3-4 and L4-5 transforaminal epidural steroid injection, performed by Harrison Hoover MD. I was not prese nt during the procedure. Fluoroscopy exposure time was 14.4 seconds. Air Kerma 7.44 mGy. COMPARISON: None FINDINGS/IMPRESSION: Fluoroscopic documentation of left L3-4 and L4-5 transforaminal epidural steroid injection. Please re ken to the operative note for complete procedural details . Reviewed, dictated and finalized at location K.
[2023-10-21 09:13] VITALS: BP 184/77; PULSE 59; RESP 20; TEMP 36.4; O2SAT 98; BMI 36.1
--- NOTE | 2023-10-21 10:01 | WPDHPUPDATE1 ---
History and Physical Update Update Date/Time: 10/21/23 10:01 History and Physical has been reviewed, including an updated exam of the patient. There are NO changes in the patient's condition. Risks, benefits, and alternatives have been discussed and questions answered. Patient agrees to proceed with procedure.
--- NOTE | 2023-10-21 10:01 | W.PM.PROC2 ---
Procedure Note - Detailed Date of Procedure 10/21/23 Pre-op Diagnosis Lumbar Radiculopathy, lumbar spinal stenosis with radiculopathy Post-op Diagnosis Same Procedure Performed left Lumbar Transforaminal Epidural Steroid Injection under Fluoroscopic Guidance and with Contrast Control at L3-4, L4-5. Surgeon Harrison Hoover MD Anesthesia Local Description of Procedure INFORMED CONSENT: Risks, benefits and alternatives to the procedure were discussed in detail with the patient who expressed explicit understanding and consent to proceed. Patient was informed verbally and in written form regarding the risks associated with the procedure including the low risk of serious infection, bleeding/bruising, allergic reaction, nerve or organ injury, paralysis, procedural site pain or discomfort, worsening pain and/or mobility, failure to treat and/or disfigurement. The patient expressed explicit understanding and consent to proceed. All materials required for the procedure were available prior to procedure start. Site and side was marked prior to procedure and confirmed in the presence of the patient. PROCEDURE IN DETAIL: The patient was brought to the procedural suite and placed in the prone position. Patient was made comfortable with use of pillows under the head/chest, hips and ankles. Skin overlying the injection site was prepared broadly with ChloraPrep applicator and draped in a sterile manner. Aseptic technique was employed throughout. The endplates of the vertebral body at the site of interest were aligned in the AP view. Ipsilateral oblique angulation was utilized to better visualize the neuroforamen of interest. Local anesthesia was established by infiltration with approximately 5 mL of 2% lidocaine via a 1-1/2 inch 27-gauge needle. A 22-gauge 5.0 inch Rosalba (pencil point) spinal needle was advanced until the needle approached the 6 o'clock position on the pedicle just superior to the exiting nerve root. on the left at L4-5. Lateral view was utilized to confirm appropriate position of the needle tip within the superior and posterior portion of the respective foramen. In an AP view, 1 mL of Omnipaque 300 contrast medium was injected after negative aspiration for CSF, blood or other bodily fluid, showing appropriate neurogram without evidence of intravascular or intrathecal spread of contrast. Digital subtraction imaging was used with an additional 1ml of the same contrast medium to confirm absence of intravascular contrast spread. A 1mL solution containing 3 mg of betamethasone was injected after negative repeat aspiration. Appropriate spread of the injectate was confirmed with washout of previously injected contrast. No parasthesias were elicited. Needle was removed completely intact without difficulty. The same exact procedure was repeated for all remaining levels on the ipsilateral side, left L3-4 neural foramen, modified as necessary to accommodate for the new target location with identical findings and results and no evidence of complication. Images were saved and documented in the patient chart. Patient's skin was cleaned and sterile bandage applied. The patient tolerated the procedure well. The patient was transported to the recovery area in stable condition where they were observed for an appropriate amount of time prior to discharge, without evidence of complication. The patient was instructed to avoid excessive activity for the next 48 hours, including climbing and frequent use of stairs. Showers only for 48 hours. They were instructed not to drive or operate heavy machinery for 24 hours. They are to monitor for severe headaches, fevers, chills, night sweats, erythema/swelling at the site or any other signs of infection, bleeding/bruising, bowel or bladder changes as well as new pain, weakness or numbness in the upper or lower extremity. Should they notice these changes, they are instructed to call our office immediately or report directly to the nearest
[2023-10-21 10:40] VITALS: BP 215/98; PULSE 65; RESP 20; O2SAT 97
[2023-10-21] MEDS: LIDOCAINE HCL 1% PF INJ 5 ML VIAL 2 ML INFILTRATE (10:41)
[2023-10-21] MEDS: LIDOCAINE HCL 2% PF INJ 5 ML VIAL 2 ML INFILTRATE (10:42)
[2023-10-21] MEDS: BETAMETHASONE SODIUM PHOSPHATE PF INJ 6 MG/ML VIAL INFILTRATE (10:42)
[2023-10-21 10:45] VITALS: BP 198/88; PULSE 67; RESP 20; O2SAT 98
[2023-10-21 10:52] VITALS: BP 173/74; PULSE 58; RESP 20; O2SAT 99
== END 2023-10-21 11:15 | disposition home or self-care (01) ==
PROVIDERS: PCP Emergency Medicine; Visit Provider Anesthesiology Pain Medicine
PROC: (CPT 64483; principal; 2023-10-21 09:45)
DX: M54.16 Radiculopathy, lumbar region (principal)
CPT/HCPCS: 64483; 99199

== ENCOUNTER 2024-01-21 07:42 | Outpatient (CLI) | payer MEDICARE, SELFPAY ==
--- NOTE | ~2024-01-21 | US_ITS ---
US breast RT limited 01/21/2024 08:30 Indication: Follow-up right breast mass. Previous benign biopsy of fibroadenoma. Procedure: High-resolution Limited ultrasound of the right breast Comparison: Ultrasound dated 07/17/2023 Findings: Decreased size of oval circumscribed parallel oriented hypoechoic mass measuring 7 mm conta ining tissue marker from previous benign biopsy. No other masses are seen. Impression: 1: Decreased size of benign right breast mass located at 2:00, 2 cm from the nipple, previously biops y-proven benign fibroadenoma. Routine yearly screening mammogram and regular clinical breast examination are recommended. BI-RADS CATEGORY 2 - BENIGN FINDINGS Reviewed, dictated and finalized at location B. ION AND NONFICTION AUTHOR Impression: 1: Decreased size of benign right breast mass located at 2:00, 2 cm from the ni pple, previously biopsy-proven benign fibroadenoma. Routine yearly screening mammogram and regular clinical breast examination are recommended. BI-RADS CATEGORY 2 - BENIGN FINDINGS
== END 2024-01-21 07:43 | disposition home or self-care (01) ==
PROVIDERS: PCP Emergency Medicine; Referring Provider Obstetrics & Gynecology; Visit Provider Surgery
DX: R92.8 Other abnormal and inconclusive findings on diagnostic imaging of breast (principal); D24.1 Benign neoplasm of right breast
CPT/HCPCS: 76642

== ENCOUNTER 2024-03-23 08:28 | Day surgery (SDC) | payer MEDICARE, SELFPAY ==
--- NOTE | ~2024-03-23 | XR_ITS ---
XR fluoroscopy no charge Indication: Left sacroiliac joint injection. TECHNIQUE: Fluoroscopy used during Left sacroiliac joint injection. performed by [Harrison Batista MD] on 03/23/2024. 22 seconds of fluoroscopy with 52 images captured. FINDINGS: Correlate with procedure note. IMPRESSION: Fluoroscopy used during Left sacroiliac joint injection.. Reviewed, dictated and finalized at location B. ER PREPARER
--- NOTE | 2024-03-23 06:53 | PM.HPGS ---
History of Present Illness History of Present Illness Consent: Risks, benefits, and alternatives have been discussed and questions answered. Patient agrees to proceed with procedure. Chief complaint: Sacroiliitis , chronic back pain Narrative: Cassandra Romero is a 73 year old female with chronic, recalcitrant and disabling left-sided lumbosacral back pain secondary to degenerative spondylosis , sacroiliitis with failure to respond to aggressive conservative measures including PT, oral and topical analgesics, opioid and nonopioid analgesics, rest, time and activity/behavioral modification over the past 1-2 years who presents for intra-articular steroid injection of the left SI joint under fluoroscopic guidance and with contrast control. Review of Systems Review of Systems: Patient denies any new infectious, allergic, cardiopulmonary, neurologic or constitutional symptoms or changes in activity tolerance or exercise capacity including new or progressive SOB/TAYLOR, peripheral edema, productive cough, dysuria, nausea/vomiting, diarrhea, weight change, fevers/chills/night sweats, new or progressive neurologic deficit, cognitive or mood changes since last seen, except as documented in the HPI. All systems reviewed & are unremarkable except as noted in HPI and below PMFSH Past Medical History Medical History HTN (hypertension) Migraine TMJ (dislocation of temporomandibular joint) TMJ arthropathy surgery in 1981 Surgical History Surgical History H/O cervical spine surgery H/O neck surgery H/O: hysterectomy History of cholecystectomy History of knee replacement (~03/2008) Family History Family History Father Family history of malignant neoplasm, Onset Age: 52 Patient's father is Mother Family history of malignant neoplasm Hypertension Carcinoma of colon, Onset Age: 61 Sibling Carcinoma of colon Other Diabetes mellitus Family history of allergic disorder Social History Social History Smoking status: Never smoker Second hand tobacco smoke exposure: No Alcohol intake: never Substance use: never Substance use type: does not use Concerned About Future Housing: Decline to Answer Difficulty Paying Gas/Electric Bills: Decline to Answer Difficulty Paying for Meds: Decline to Answer Currently Unemployed: Decline to Answer Education: Decline to Answer Difficulty w/ Childcare or Family Care: Decline to Answer Living arrangements: with family Spiritual care concerns: No Meds Home Medications and Allergies Home Medications ?Medication ?Instructions ?Recorded ?Confirmed ?Type glucosamine [id number]-N1-[id number] 1 tablet PO DAILY 12/31/19 03/05/24 History joselyn 1,500 mg-400 unit-100 mg tablet (Glucosamine Daily Complex) Liver Antioxidant Extract 1 cap PO DAILY 04/18/22 03/05/24 History Pc Liver And Brain Support 1 cap PO DAILY 04/18/22 03/05/24 History Phytoceramides 1 cap PO DAILY 04/18/22 03/05/24 History multivitamin 1 tablet PO DAILY 04/18/22 03/05/24 History turmeric 100 mg-danial 150 1 cap PO DAILY 04/18/22 03/05/24 History mg-olive 50 mg-oreg 150 mg-capryl capsule chondroitin sulfate A sodium 400 400 mg PO DAILY 04/25/23 03/05/24 History mg capsule docosahexaenoic acid 200 mg 200 mg PO DIRECTED 04/25/23 03/05/24 History capsule (Algal [place]-3 DHA) coenzyme Q10 200 mg capsule (Co 200 mg PO DAILY 07/22/23 03/05/24 History Q-10) pyridoxine (vitamin B6) 100 mg 100 mg PO DAILY 07/22/23 03/05/24 History tablet levothyroxine 75 mcg tablet 75 mcg PO DAILY #90 tabs 12/09/23 03/05/24 Rx losartan 50 mg-hydrochlorothiazide 1 tablet PO DAILY #90 tabs 12/18/23 03/05/24 Rx 12.5 mg tablet metoprolol succinate 100 mg 100 mg PO DAILY #90 tabs 02/24/24 03/05/24 Rx tablet,extended release 24 hr Allergies Allergy/AdvReac Type Severity Reaction Status Date / Time celecoxib Allergy Unknown Itching Verified 03/05/24 08:20 aspirin AdvReac Unknown Nausea Verified 03/05/24 08:20 atorvastatin AdvReac Unknown muscle Verified 03/05/24 08:20 cramps ezetimibe AdvReac Unknown leg cramps Verified 03/05/24 08:20 fenofibrate AdvReac Unknown Skin Verified 03/05/24 08:20 Reaction omega-3 acid ethyl esters AdvReac Unknown Nausea Verified 03/05/24 08:20 (Lovaza) pitavastatin (Livalo) AdvReac Unknown Nausea Verified 03/05/24 08:20 rosuvastatin AdvReac Unknown leg cramps Verified 03/05/24 08:20 simvastatin (Vytorin) AdvReac Unknown leg cramps Verified 03/05/24 08:20 Exam Narrative: The patient's physical exam is essentially unchanged from prior examination on 02/10/2024. Specifically, patient demonstrates normal lung capacity, tidal volume and respiratory rate without wheezes, crackles, rales or rubs. Heart rate and rhythm are regular without murmurs, gallops or rubs. No JVD. Pulses 2+ globally without increasing peripheral edema. AAOx3 with no evidence of confusion, intoxication or altered mental state, NC/AT without acute distress or altered consciousness. Speech, cognition, mood, insight and judgment at baseline and within normal limits. Assessment and Plan Assessment and plan (1) Lumbosacral spondylosis: Code(s): M47.817 - Spondylosis without myelopathy or radiculopathy, lumbosacral region Status: Acute (2) Sacroiliitis: Code(s): M46.1 - Sacroiliitis, not elsewhere classified Status: Acute (3) Dorsalgia: Code(s): M54.9 - Dorsalgia, unspecified Status: Acute Plan proceed as planned with intra-articular steroid injection of the left sacroiliac joint under fluoroscopic guidance.
--- NOTE | 2024-03-23 06:56 | WPDHPUPDATE1 ---
History and Physical Update Update Date/Time: 03/23/24 06:56 History and Physical has been reviewed, including an updated exam of the patient. There are NO changes in the patient's condition. Risks, benefits, and alternatives have been discussed and questions answered. Patient agrees to proceed with procedure.
--- NOTE | 2024-03-23 06:57 | W.PM.PROC2 ---
Procedure Note - Detailed Date of Procedure 03/23/24 Pre-op Diagnosis Sacroiliitis , chronic back pain Post-op Diagnosis Same Procedure Performed Left Sacroiliac Joint Steroid Injection under Fluoroscopic Guidance and with Contrast Control. Surgeon Harrison Hoover MD Plant [employer] Scientist None Anesthesia Local Description of Procedure INFORMED CONSENT: Risks, benefits and alternatives to the procedure were discussed in detail with the patient who expressed explicit understanding and consent to proceed. Patient was informed verbally and in written form regarding the risks associated with the procedure including the low risk of serious infection, bleeding/bruising, allergic reaction, nerve or organ injury, paralysis, procedural site pain or discomfort, worsening pain and/or mobility, failure to treat and/or disfigurement. The patient expressed explicit understanding and consent to proceed. All materials required for the procedure were available prior to procedure start. Site and side were marked prior to procedure and confirmed in the presence of the patient. PROCEDURE IN DETAIL: The patient was brought to the procedural suite and placed in the prone position. Patient was made comfortable with use of pillows under the head/chest, hips and ankles. Skin overlying the injection site on the affected side(s) was prepared broadly with ChloraPrep applicator and draped in a sterile manner. Aseptic technique was used throughout. The left SI joint was identified in the AP view and contralateral oblique angulation with caudal tilt was utilized to optimize visualization of the inferior and medial joint line representing the posterior portion of the joint. Local anesthesia was established by infiltration with approximately 5 mL of 2% lidocaine via a 1-1/2 inch 27-gauge needle. A 22-gauge 3.5 inch Quincke spinal needle was advanced until the needle entered the inferior third of the joint space approximately 1cm cephalad from its most inferior point. In the AP view, 0.5 mL of Omnipaque 300 contrast medium was injected after negative aspiration for CSF, blood or other bodily fluid, showing appropriate intra-articular spread of contrast without evidence of intravascular, perineural or intrathecal placement. A 1.5 mL solution containing 6 mg of betamethasone in 0.5% PF bupivacaine was injected after repeat negative aspiration. Appropriate spread of the injectate was confirmed with washout of previous injected contrast. No parasthesias were elicited. Needle was removed completely intact without difficulty. Images were saved and documented in the patient chart. Patient's skin was cleansed and sterile bandage applied. The patient tolerated the procedure well. The patient was transported to the recovery area in stable condition where they were observed for an appropriate amount of time prior to discharge, without evidence of complication. The patient was instructed to avoid excessive activity for the next 48 hours, including climbing and frequent use of stairs. Showers only for 48 hours. They were instructed not to drive or operate heavy machinery for 24 hours. They are to monitor for severe headaches, fevers, chills, night sweats, erythema/swelling at the site or any other signs of infection, bleeding/bruising, bowel or bladder changes as well as new pain, weakness or numbness in the upper or lower extremity. Should they notice these changes, they are instructed to call our office immediately or report directly to the nearest Emergency Department if no answer or if after posted office hours. COMPLICATIONS: None COMMENTS: None CONTRAST WASTED: 29.5mL Omnipaque 300. Complications No immediate complications Condition Stable Disposition Same day [facility] Billing Surgery - Charge Forward: Surgery Billing
[2024-03-23 09:14] VITALS: BP 153/81; PULSE 63; RESP 16; TEMP 36.8; O2SAT 98
[2024-03-23 09:46] VITALS: BP 199/88; PULSE 61; RESP 12; O2SAT 96
[2024-03-23] MEDS: BUPivacaine HCL 0.5% 10 ML AMP INFILTRATE (09:48)
[2024-03-23] MEDS: BETAMETHASONE SODIUM PHOSPHATE PF INJ 6 MG/ML VIAL INFILTRATE (09:48)
[2024-03-23] MEDS: LIDOCAINE 1% PF INJ 5 ML VIAL XX (09:49)
[2024-03-23 09:52] VITALS: BP 177/85; PULSE 67; RESP 18; O2SAT 97
[2024-03-23 09:56] VITALS: BP 154/74; PULSE 59; RESP 18; O2SAT 100
--- OUTSIDE RECORDS SUMMARY | 2024-03-30 01:05 | XMS_ITS | Encounter Summary ---
Author Organization [facility] Address [address] [place] [address] Care Team Providers Care Non Destructive Testing Specialist Name Role Phone Jamel Barrow MD Primary Care Provider [phone] Encounter Details Date Type Department Care Team (Late st Contact Info) Description 04/27/2009 7:29 AM ORCHID SUPERINTENDENT - 04/27/2009 8:41 AM ORCHID SUPERINTENDENT [facility] Operating Room [address] [place] [phone] Arleth Hussein MD [address] [facility] [address] [place] [address] HEMORRHOIDECTOMY Surgery Details Date/Time Status Location OR Service Patient Class Case Class Case Type Trauma Case? 04/27/2009 7:29 AM Posted [facility] OR MAIN OR General Surgery Surgical OP/Extended Care Elective No Panel 1 Procedure LRB Anes Op Region Wound Class Comments HEMORRHOIDECTOMY N/A General Anus Clean Contami nated-II Surgeon Surgeon Role Service Panel Arleth Hussein MD Primary General Surgery 1 documented in this encounter Social History Tobacco Use Types Packs/Day Years Used Date Smoking Tobacco: Never Alcohol Use Standard Drinks/Week Comments No 0 (1 standard drink = 0.6 oz pur e alcohol) Sex and Gender Information Value Date Recorded Sex Assigned at Not on file Gender Identity Not on file Sexual Orientation Not on file documented as of this encounter Last Filed Vital Signs Vital Sign Reading Time Taken Comments Blood Pressure 145/76 04/27/2009 6:04 AM ORCHID SUPERINTENDENT Pulse 58 04/27/2009 6:04 AM ORCHID SUPERINTENDENT Temperature 36.4 ??C (97.6 ??F) 04/27/2009 6:04 AM CS T Respiratory Rate 18 04/27/2009 6:04 AM ORCHID SUPERINTENDENT Oxygen Saturation 96% 04/27/2009 6:04 AM ORCHID SUPERINTENDENT Inhaled Oxygen Concentration - - Weight 108.4 kg (239 lb) 04/24/2009 9:42 AM ORCHID SUPERINTENDENT Height 170.2 cm (5' 7 ) 04/24/2009 9:42 AM ORCHID SUPERINTENDENT Body Mass Index 37.43 04/24/2009 9:42 AM ORCHID SUPERINTENDENT documented in this encounter Discharge Instructions * Discharge Instructions* Carolina Givens RN - 04/27/2009 10:23 AM ORCHID SUPERINTENDENT Start sitz baths tonight: Remove any dressings. Sit in a tub with hot water (plain water) for 20 min, three times a day. Afterwards, dry skin carefully by patting gently, and dress with dry gauze over your anus. Take Metamucil one packet in water twice a day or a daily fiber supplement of your choice. Eat a high fiber diet. If you were given a prescription for topical Lidocaine ointment, you can apply this externally as needed for pain. SAFETY For the next 24 hours, you may feel sleepy due to medicines used during your procedure. For this 24hour period or while you are on pain medication, DO NOT make any important decisions or sign any important papers. DO NOT drink any alcoholic beverages, including beer. DO NOT drive a car or operate machinery and power tools. For your safety and protection, we strongly recommend that a responsible adult be with you today and throughout the night. ACTIVITY Keep activities to a minimum for days. You may resume your normal activities as you feel inclined. Gradually increase activities at a comfortable individual pace. You may resume driving when not taking pain medication which may impair judgment and response during driving. You should also feel capable of having physical strength to respond quickly to any situation which may occur while driving. DIET Stay on light diet today, you may eat as tolerated after ___2____hours. Drink plenty of fluids. WOUND CARE Some drainage is normal. You may wear a pad/dressing in your underwear to absorb the drainage. Change dressing as needed. MEDICATIONS Headache remedies if necessary (Motrin, Advil, Nuprin, Ibuprofen, Aspirin, Tylenol, etc) FOLLOW-UP Call the office to make an appointment for _1-2 weeks [phone]__yykln surgery. Once you are home, if you develop any of the following symptoms, call your physician. Difficulty in breathing, persistent nausea or vomiting, excessive rectal bleeding, pain that is unusual, temperature greater than 101 degrees If you cannot contact your physician, call or come to the Emergency Room at [facility] ([phone]) or the nearest Emergency Room. In an emergency, Call 911 Return to the office in 4 weeks or as directed. Call for fevers, increasing pain, increasing swelling, or a substantial or increasing amount of bleeding. Some moderate bleeding is normal. ID SUPERINTENDENT * Attachments The following attachments cannot be sent through Care Everywhere. * HEMORRHOIDECTOMY: WHAT TO EXPECT AT HOME (KAZAKH) documented in this encounter Medications at Time of Discharge Medication Sig Dispensed Refills Start Date End Date lidocaine (XYLOCAINE) 5 % Topical Oint Apply to affected area q 1 hour PRN for Pain. To anus 1 Tube 3 04/27/2009 oxycodone-acetaminophe n (PERCOCET) 5-325 mg Oral tablet Take 1-2 Tabs by mouth every 4 hours as needed for Pain. 30 Tab 0 04/27/2009 psyllium (METAMUCIL) Oral Pack Take 1 Packet by mouth 2 times daily. Over the counter medicine. Use instructions on the product. 1 Packet 0 04/27/2009 oxycodone-acetaminophe n (PERCOCET) 5-325 mg Oral tablet Take 1-2 Tabs by mouth every 4 hours as needed for Pain. 60 Tab 0 04/27/2009 fluoxetine (PROZAC) 20 mg Oral capsule Take 20 mg by mouth daily. hs bisoprolol-hydrochloro thiazide (ZIAC) 10-6.25 mg Oral tablet Take 1 Tab by mouth daily. hs documented as of this encounter H&P Notes * Alice Church - 04/29/2009 2:36 PM ORCHID SUPERINTENDENT * Arleth Hussein MD - 04/21/2009 11:57 AM CST [place], [place] [address] History and Physical CSN: [id number] CHIEF COMPLAINT Hemorrhoids. HISTORY The patient is a 58-year-old female with a long history of intermittent rectal bleeding from internal hemorrhoids. She has been treated with rubber band ligation in the past. Over several years her external component has enlarged and she is ready for an operative hemorrhoidectomy. PAST MEDICAL HISTORY Her past medical history is significant for depression, gastroesophageal reflux disorder, and high blood pressure, and cervical DJD. PAST SURGICAL HISTORY Knee surgery, jaw surgery, wrist surgery, and hemorrhoidal banding. SOCIAL HISTORY She is a nonsmoker, nondrinker. ALLERGIES Aspirin and Celebrex. MEDICATIONS 1. Ziac. 2. Prozac. 3. Meloxicam. 4. Metamucil. REVIEW OF SYSTEMS CONSTITUTIONAL: Negative for fevers, chills, malaise or fatigue. She has occasional headaches. NEUROLOGIC: No dizziness, seizures, numbness, tremors, paralysis or stroke. CARDIOVASCULAR: No chest pain, palpitations, shortness of breath or pedal edema. SKIN: No new rashes or lesions. HEENT: No eye disease. No glaucoma. She has a sinus problems. She denies hearing loss or earaches. No dysphagia or nosebleeds. RESPIRATORY: No cough, cold, hemoptysis or wheeze. GENITOURINARY: No frequency, dysuria, hematuria, urinary incontinence or kidney stones. GASTROINTESTINAL: Some constipation. Occasional painful bowel movements and rectal bleeding. She denies any abdominal pain. She has gastroesophageal reflux disease but denies ulcers. She denies any change in her appetite. MUSCULOSKELETAL: No difficulty walking but she does have cramps in her legs and joint stiffness. PSYCHIATRIC: No anxiety. Positive for depression. ENDOCRINE: No thyroid dysfunction or diabetes. PHYSICAL EXAMINATION GENERAL: She is alert and oriented and in no apparent distress. HEENT: Head is normocephalic and atraumatic. Pupils are equally round and reactive to light. Extraocular movements are intact. Oropharynx is clear. Mucous membranes are moist. NECK: Supple with no lymphadenopathy. LUNGS: Lungs are clear bilaterally. HEART: Heart shows a regular rate and rhythm without any murmurs. ABDOMEN: Abdomen is soft, nontender, nondistended. RECTAL: Her external rectal examination shows an enlarged right anterior hemorrhoidal column with aprominent skin tag and a smaller left lateral column. Digital rectal examination is normal. Anoscopy shows grade 2 to 3 internal hemorrhoids in all three columns ASSESSMENT Combined hemorrhoids. PLAN Excisional hemorrhoidectomy with suture ligation of remaining internal hemorrhoids. The risks, benefits, alternatives and possible complications to include bleeding, pain, infection, recurrence, damage to local structures, incontinence were all explained to the patient. She understands and agrees to proceed. KG:MEDQ DID: [id number] Dictated by: Arleth Hussein MD ID SUPERINTENDENT documented in this encounter OR Notes * OR Anesthesia - Alice Church - 04/29/2009 2:36 PM ORCHID SUPERINTENDENT * Marleen-OP - Carolina Givens RN - 04/27/2009 10:18 AM CST Potential for pain related to surgical/procedural intervention Interventions: Assess level of pain/comfort utilizing verbal/nonverbal pain scales; assess culturalor presybeterian indicators attached to pain; administer pain medications as prescribed; utilize non-pharmacologic pain control and comfort measures Expected Outcome: Patient demonstrates and reports adequate pain control Outcome Met: yes Knowledge deficit related to post-discharge care Interventions: Assess learning needs and willingness to learn; give clear, concise explanations of the care required post-discharge; address patient/family questions and concerns; provide teaching asindicated Expected Outcome: Patient and/or family/significant other demonstrate(s) behaviors required for performance of activities enhancing recovery post-discharge Outcome Met: yes ID SUPERINTENDENT * Marleen-OP - Nel Moreno RN - 04/27/2009 10:05 AM CST Potential for alteration in thermoregulatory, circulatory, respiratory fluid & electrolyte status Interventions: Perform ongoing physical assessment; maintenance of airway or mechanical ventilation; monitor level of consciousness; initiate safety measures; observe patient???s respiratory status and oxygen saturation; obtain measurements of ongoing hemodynamic parameters, cardiac rhythm, and temperature; monitor intake and output; inspect wound dressings and/or drain output; perform prescribedtherapeutic regimens, treatments and tests; document and/or communicate care given Expected Outcome: Patient will maintain functional status compatible with preoperative status Outcome Met: yes ID SUPERINTENDENT * Marleen-OP - Nel Moreno RN - 04/27/2009 9:48 AM CST Pt states she took her BP med last night. ID SUPERINTENDENT * Marleen-OP - Nel Moreno RN - 04/27/2009 9:25 AM CST Pt frequently obstructing airway. Pt awakens to verbal/light tactile stim. Pt stimulated when having s/s of obstruction. No desaturation on 10L SFM. ID SUPERINTENDENT * Marleen-OP - Nel Moreno RN - 04/27/2009 9:13 AM CST OA d/c'd by anesthesia provider. ID SUPERINTENDENT * Operative Report - Arleth Hussein MD - 04/27/2009 8:55 AM CST SURGEON Arleth Hussein MD PREOPERATIVE DIAGNOSIS Combined hemorrhoids POSTOPERATIVE DIAGNOSIS same PROCEDURE Excisional hemorrhoidectomy SPECIMENS Hemmorrhoids ESTIMATED BLOOD LOSS Est Blood Loss (mL): 100 mL (04/27/09 0849) ANESTHESIA GETA IV FLUIDS 800 COMPLICATIONS None. PROCEDURE After appropriate preoperative workup and consent, the patient was brought to the operating room. She was intubated then placed in the prone jackknife position and padded. Her buttocks were taped apart and sterilely prepped and draped. A bilateral anal block of 1% lidocaine with epinephrine was infiltrated in bilateral anal block. The anus was gently dilated. There were 3 columns of large combined hemorrhoids. Attention was first turned to the right posterior column. A 3-0 Vicryl was used to suture ligate the hemorrhoidal pedicle in the anal canal. This stitch was left long. Additional local anesthetic was then infiltrated in the submucosal plane. An elliptical skin incision was made over anoderm and anal mucosa, and the hemorrhoidal plexus was lifted off the internal sphincter muscle. This pedicle was again suture ligated, and the hemorrhoid was divided off and sent for specimen. The remaining defect in the anal mucosa and anoderm was closed with the previously placed pedicle suture ligation stitch, taking care to incorporate bites of internal sphincter to tack down the suture lineproximally over anal mucosa. These stitches were locking in nature, and distally on the anoderm they were simple. Attention was then turned in the same manner to the remaining two columns. The anus was then irrigated, and small spots of bleeding on the hemorrhoidal suture lines were oversewn with in terrupted [id number] 3-0 Vicryl if necessary. Additional local anesthetic was infiltrated bilaterally. A small piece of Gelfoam was placed in the anal canal. Fluffs and mesh panties completed the dressing. The patient was then rolled back over to the stretcher, extubated, and taken to recovery in excellent condition. Counts were complete x2 at the termination of the case. ID SUPERINTENDENT * Marleen-OP - Ellen Whaley RN - 04/27/2009 7:33 AM CST Intra-Op Medications Normal Saline 0.9% 1,000 mL for irrigation. 0.25% bupivacaine and 1%lidocaine mixed 1:1 45 Ml injected Gelfoam Report to pacu at 854 ID SUPERINTENDENT * Marleen-OP - Jolie Bee RN - 04/27/2009 6:10 AM CST Potential for anxiety related to surgical intervention Interventions: convey caring/supportive attitude; offer emotional support as needed; provide comfort measures (warm blanket, pillow, quiet environment); allow patient opportunity to verbalize concerns/fears/questions; explore coping behaviors; allow age-specific/special needs family support Expected Outcome: Patient will demonstrate decreased anxiety or adaptive coping strategies Outcome Met: yes Potential for pain related to surgical/procedural intervention Interventions: Assess level of pain/comfort utilizing verbal/nonverbal pain scales; assess culturalor presybeterian indicators attached to pain; administer pain medications as prescribed; utilize non-pharmacologic pain control and comfort measures Expected Outcome: Patient demonstrates and reports adequate pain control Outcome Met: yes ID SUPERINTENDENT * OR Anesthesia - Randi Mcleod AA-C - 04/26/2009 9:09 PM CST Pre-Anesthesia Evaluation - Long Form 04/26/2009 9:09 PM Name: Zully Castañeda Age: 58 y.o. Sex: female CSN: [id number] Procedure: Procedure(s): HEMORRHOIDECTOMY Surgeons/Assistants: Surgeon(s) and Role: * Arleth Hussein MD - Primary Allergies Allergen Reactions ??? Celebrex (Celecoxib) Itching ??? Aspirin Nausea and Vomiting No prescriptions prior to admission. There are no active problems to display for this patient. Past Medical History Diagnosis Date ??? Depression ??? HTN (Hypertension) 20 yrs Past Surgical History Procedure Date ??? 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 Hx surgical other 1981 left carpal tunnel ??? Hx knee replacment 2008 right total knee replace (x3 repairs proir to) History Substance Use Topics ??? Tobacco Use: Never ??? Alcohol Use: No No family history on file. Previous Anesthesia Problems/Concerns: No anesthesia problems/complications History of PONV No Review of Systems Cardiovascular: negative. Gastrointestinal: reflux controlled with diet and meds. Genitourinary:negative. Respiratory: denies CELSA, Asthma. Musculoskeletal: Arthritis Neck, Knees Neurological: negative Endocrine: negative PHYSICAL EXAM Ht 5' 7 (1.702 m) Wt 239 lb (108.41 kg) Weight: Wt - Scale: 239 lb (108.41 kg) (04/24/09 0942) Height: Last 1 Encounter Ht Readings: Date Ht 04/24/2009 5' 7 (1.702 m) BMI: Body mass index is 37.43 kg/(m^2). Airway: normal range of motion and supple: Airway Class: II (soft palate, uvula, fauces visible); Mouth Opening 3+ Finger Breadth Lungs: clear to auscultation bilaterally, normal respiratory effort Heart: regular rate and rhythm, S1, S2 normal, no murmur, click, rub or gallop Neuro: alert, oriented x 3, no defects noted in general exam. Vascular Access: None LABS Lab Results Component Value Date/Time ??? HEMOGLOBIN 11.9 04/24/09 9:45 AM ??? HEMATOCRIT 35.9 04/24/09 9:45 AM Lab Results Component Value Date/Time ??? SODIUM 140 04/24/09 9:45 AM ??? POTASSIUM 3.9 04/24/09 9:45 AM ??? CHLORIDE 102 04/24/09 9:45 AM ??? CO2 28 04/24/09 9:45 AM ??? CALCIUM 9.3 04/24/09 9:45 AM ??? BUN 18 04/24/09 9:45 AM ??? CREATININE 0.78 04/24/09 9:45 AM ??? GLUCOSE 83 04/24/09 9:45 AM No results found for this basename: INR,PT,PROTIMEPOC No results found for this basename: HCGURPOC,HCGQUALUR,HCGQUAL,HCGQUANT,HCGINTACT No results found for this basename: glucpoc EKG: sinus bradycardia, consider LAE Other Studies/Considerations: None Postop pain management discussed no Smoking/Tobacco Counseling: None Recommendations: None [facility] report reviewed. No interval changes in patient's history or review of systems.Yes ASA Physical Status: ASA 2 - Patient with mild systemic disease with no functional limitations I have seen and examined this patient and confirm that all data is current and accurate. Yes Choice of Anesthesia/Anesthesia Plan: Proceed, General and Routine Monitoring I have discussed the anesthetic options and the risks/benefits with the patient/family. Questions have been solicited and answered. Yes Luan Aleman MD I have reviewed this note and the chart and have spoken to the patient. Randi LEON ID SUPERINTENDENT documented in this encounter Miscellaneous Notes * Patient Instructions - Stl Scanning, Provider - 04/29/2009 2:37 PM ORCHID SUPERINTENDENT * Scanned Form - Stl Scanning, Provider - 04/29/2009 2:36 PM ORCHID SUPERINTENDENT * Scanned Form - Stl Scanning, Provider - 04/29/2009 2:36 PM ORCHID SUPERINTENDENT * Scanned Form - Stl Scanning, Provider - 04/29/2009 2:36 PM ORCHID SUPERINTENDENT documented in this encounter Plan of Treatment Not on file documented as of this encounter Procedures Procedure Name Priority Date/Time Associated Diagnosis Comments PATHOLOGY Routine 04/27/2009 10:09 AM ORCHID SUPERINTENDENT HEMORRHOIDECTOMY 04/27/2009 7:06 AM ORCHID SUPERINTENDENT HEMORRHOIDS documented in this encounter Results * PATHOLOGY (04/27/2009 10:09 AM ORCHID SUPERINTENDENT) SURGICAL PATHOLOGY ?[facility] ?[address] ? [place], [place] ??[address] ? Patient: ??ZULLY CASTAÑEDA A ? : ??1950 ? Procedure Date: ??04/27/2009 ? Accession Date: ??04/27/2009 ? Case No: ??[id number] ? Ordering Dr: ??ARLETH HUSSEIN ? Case type SW is performed by [place], [place]; ? all other case types are performed by [facility], ? [place] ?SURGICAL PATHOLOGY & NON-GYNECOLOGIC CYTOPATHOLOGY REPORT ? DIAGNOSIS ? ANUS, EXCISION: ? - HEMORRHOIDS. ? - HYPERKERATOSIS. ? - EROSION. ? Specimen Description: ? Hemorrhoids. ? Operative Procedure: ? Hemorrhoidectomy. ? Patient Information/Histor y/Diagnosis: ? Hemorrhoids. ? Gross: ? Received in one container labeled Zully Castañeda, hemorrhoids are ? five pieces of pink-red tissue ranging from 0.5 cm to 3.0 cm in greatest ? dimension. Sectioning demonstrates a hemorrhagic cut surface. ? [employer] sections are submitted in block A1. ? [facility]/DUNIA 04.27.2009 12:59 pm ? Microscopic: ? The slide is labeled [id number] and Zully Castañeda. ? Sections show focally hyperkeratotic squamous epithelium and rectal ? glandular epithelium with a focal erosion. The underlying veins are ? engorged and dilated. ? DJG/PJS 04.28.2009 11:48 am ? Staging Form: ? No ? ELECTRONIC SIGNATURE FOR CHRISTOPHER HEREDIA M.D.- 04/28/09 04:05 pm [facility] Specimen of unknown material (specimen) 04/27/2009 10:09 AM ORCHID SUPERINTENDENT Arleth Hussein MD PATHOLOGY/CYTOLOGY O RDERABLES [facility] CLIA# [id number] [address] [place], [place] [address] documented in this encounter Visit Diagnoses Not on filedocumented in this encounter Administered Medications Inactive Administered Medications - up to 3 most recent administrations Medication Order MAR Action Action Date Dose Rate Site cefoxitin (MEFOXIN) infusion 2,000 mg 2,000 mg, IV, PRE-PROCEDURE ONCE, 1 dose, Starting on Liliana 04/27/09 at 0732, Until Liliana 04/27/09 at 0733, Stat Given 04/27/2009 7:33 AM ORCHID SUPERINTENDENT 2,000 mg oxycodone-acetaminophen (PERCOCET) 5-325 mg per tablet 2 Tab 2 Tablet, Oral, EVERY 4 HOURS PRN, Starting on Liliana 04/27/09 at 0858, Until Liliana 04/27/09 at 1715, Pain, Moderate, For Pain Scale 4-6, Routine Given 04/27/2009 10:48 AM ORCHID SUPERINTENDENT 1 Tablet documented in this encounter Active and Recently Administered Medications Times are shown in ORCHID SUPERINTENDENT. Scheduled Medication Order 04/25/2009 04/26/2009 04/27/2009 cefoxitin (MEFOXIN) infusion 2,000 mg (COMPLETED) 2,000 mg, IV, PRE-PROCEDURE ONCE, 1 dose, Starting on Liliana 04/27/09 at 0732, Until Liliana 04/27/09 at 0733, Stat 0733 (Given - Provid er: EDWARD Lay) PRN Medication Order 04/25/2009 04/26/2009 04/27/2009 oxycodone-acetaminophen (PERCOCET) 5-325 mg per tablet 2 Tab (CANCELED) 2 Tablet, Oral, EVERY 4 HOURS PRN, Starting on Liliana 04/27/09 at 0858, Until Liliana 04/27/09 at 1715, Pain, Moderate, For Pain Scale 4-6, Routine 1048 (Given - Provid er: Sylvia Mercado RN) documented in this encounter Care Teams Non Destructive Testing Specialist Relationship Specialty Start Date End Date Jamel Barrow MD [address] [place] [address] PCP - General 04/01/05 documented as of this encounter
--- OUTSIDE RECORDS SUMMARY | 2024-03-30 01:05 | XMS_ITS | Clinical Summary ---
Author Organization [facility] Address [address] [place] [address] Phone Care Team Providers Care Director Of Email Marketing Name Role Phone Jamel Barrow MD Primary Care Provider [phone] Allergies Active Allergy Reactions Criticality Noted Date Comments Aspirin Nausea and Vomiting Low 04/24/2009 Celecoxib Itching Low 04/24/2009 Medications Medication Sig Dispensed Refills Start Date End Date Status fluoxetine (PROZAC) 20 mg Oral capsule Take 20 mg by mouth daily. hs Active bisoprolol-hydrochl orothiazide (ZIAC) 10-6.25 mg Oral tablet Take 1 Tab by mouth daily. hs Active lidocaine (XYLOCAINE) 5 % Topical Oint Apply to affected area q 1 hour PRN for Pain. To anus 1 Tube 3 04/27/2009 Active oxycodone-acetamino phen (PERCOCET) 5-325 mg Oral tablet Take 1-2 Tabs by mouth every 4 hours as needed for Pain. 30 Tab 0 04/27/2009 Active psyllium (METAMUCIL) Oral Pack Take 1 Packet by mouth 2 times daily. Over the counter medicine. Use instructions on the product. 1 Packet 0 04/27/2009 Active oxycodone-acetamino phen (PERCOCET) 5-325 mg Oral tablet Take 1-2 Tabs by mouth every 4 hours as needed for Pain. 60 Tab 0 04/27/2009 Active Social History Tobacco Use Types Packs/Day Years Used Date Smoking Tobacco: Never Alcohol Use Standard Drinks/Week Comments No 0 (1 standard drink = 0.6 oz pur e alcohol) Sex and Gender Information Value Date Recorded Sex Assigned at Not on file Gender Identity Not on file Sexual Orientation Not on file Last Filed Vital Signs Vital Sign Reading Time Taken Comments Blood Pressure 152/75 04/27/2009 12:37 PM BRIQUETTING MACHINE OPERATOR Pulse 78 04/27/2009 12:37 PM BRIQUETTING MACHINE OPERATOR Temperature 36.6 ??C (97.8 ??F) 04/27/2009 12:[address] Respiratory Rate 22 04/27/2009 12:37 PM BRIQUETTING MACHINE OPERATOR Oxygen Saturation 95% 04/27/2009 12:37 PM BRIQUETTING MACHINE OPERATOR Inhaled Oxygen Concentration - - Weight 108.4 kg (239 lb) 04/24/2009 9:42 AM BRIQUETTING MACHINE OPERATOR Height 170.2 cm (5' 7 ) 04/24/2009 9:42 AM BRIQUETTING MACHINE OPERATOR Body Mass Index 37.43 04/24/2009 9:42 AM BRIQUETTING MACHINE OPERATOR Plan of Treatment Health Maintenance Due Date Last Done Comments DTAP/TDAP/TD VACCINES (1 - Tdap) 05/20/1970 BREAST CANCER SCREENING 1991 COLORECTAL SCREENING 05/20/1996 Colorectal Cancer Screening 05/20/1996 FIT-DNA Q 3 years 05/20/1996 FIT/FOBT Q 1 year 05/20/1996 Flex Sig/CT Colonography Q 5 years 05/20/1996 ZOSTER VACCINE (1 of 2) 05/20/2001 OSTEOPOROSIS SCREENING 05/20/2016 PNEUMOCOCCAL VACCINE 65+ YEARS (1 of 1 - PCV) 05/21/19 17 INFLUENZA VACCINE (#1) 2023 RSV VACCINE (60+ or ) (1 - 1-dose 75+ series) 05/20/2026 Advance Directives For more information, please contact: [phone] * Full Code (Latest Code Status on File) Date Activated Date Inactivated Comments 04/27/2009 5:49 AM 04/27/2009 5:15 PM Care Teams Director Of Email Marketing Relationship Specialty Start Date End Date Jamel Barrow MD [address] [place] [address] PCP - General 04/01/05
--- OUTSIDE RECORDS SUMMARY | 2024-03-30 01:05 | XMS_ITS | Encounter Summary ---
Author Organization [facility] Address [address] [place] [address] Care Team Providers Care Construction Equipment Overhauler Name Role Phone Jamel Barrow MD Primary Care Provider [phone] Encounter Details Date Type Department Care Team (Latest Contact Info) Description 04/27/2009 5:23 AM JUKEBOX ROUTEMAN - 04/27/2009 1:00 PM JUKEBOX ROUTEMAN Hospital Encounter [facility] [address] [place] [id number] Arleth Hussein MD [address] [place] [address] Discharge Disposition: Home or Self Care Social History Tobacco Use Types Packs/Day Years [...] Comments Blood Pressure 152/75 04/27/2009 12:37 PM JUKEBOX ROUTEMAN Pulse 78 04/27/2009 12:37 PM JUKEBOX ROUTEMAN Temperature 36.6 ??C (97.8 ??F) 04/27/2009 12:[address] Respiratory Rate 22 04/27/2009 12:37 PM JUKEBOX ROUTEMAN Oxygen Saturation 95% 04/27/2009 12:37 PM JUKEBOX ROUTEMAN Inhaled Oxygen Concentration - - Weight 108.4 kg (239 lb) 04/24/2009 9:42 AM JUKEBOX ROUTEMAN Height 170.2 cm (5' 7 ) 04/24/2009 9:42 AM JUKEBOX ROUTEMAN Body Mass Index 37.43 04/24/2009 9:42 AM JUKEBOX ROUTEMAN documented in this encounter Discharge Instructions * Discharge Instructions* Carolina Givens RN - 04/27/2009 10:23 AM JUKEBOX ROUTEMAN Start sitz baths tonight: Remove any dressings. [...] to make an appointment for _1-2 weeks [phone]__[id number] surgery. Once you are home, if you develop any of the following symptoms, call your physician. Difficulty in breathing, persistent nausea or vomiting, excessive rectal bleeding, pain that is unusual, temperature greater than 101 degrees If you cannot contact your physician, call or come to the Emergency Room at [place] ([phone]) or the nearest Emergency Room. In an emergency, Call 911 Return to the office in 4 weeks or as directed. Call for fevers, increasing pain, increasing swelling, or a substantial or increasing amount of bleeding. Some moderate bleeding is normal. BOX ROUTEMAN * Attachments The following attachments cannot be sent through Care Everywhere. * HEMORRHOIDECTOMY: WHAT TO EXPECT AT HOME (JAPANESE) documented in this encounter Medications at Time [...] * Alice Church - 04/29/2009 2:36 PM JUKEBOX ROUTEMAN * Arleth Hussein MD - 04/21/2009 11:57 AM CST [place], [place] [address] History and Physical CSN: [id number] CHIEF COMPLAINT Hemorrhoids. HISTORY The patient is [...] patient. She understands and agrees to proceed. KG:MEDAfua DID: [id number] Dictated by: Arleth Hussein MD BOX ROUTEMAN documented in this encounter OR Notes * OR Anesthesia - Stl Scanning, Provider - 04/29/2009 2:36 PM JUKEBOX ROUTEMAN * Marleen-OP - Carolina Givens RN - 04/27/2009 10:18 AM CST Potential for pain related to surgical/procedural intervention Interventions: Assess level of pain/comfort utilizing verbal/nonverbal pain scales; assess culturalor hoahaoism indicators attached to pain; administer pain medications [...] activities enhancing recovery post-discharge Outcome Met: yes BOX ROUTEMAN * Marleen-OP - Nel Moreno RN - [...] compatible with preoperative status Outcome Met: yes BOX ROUTEMAN * Marleen-OP - Nel Moreno RN - 04/27/2009 9:48 AM CST Pt states she took her BP med last night. BOX ROUTEMAN * Marleen-OP - Nel Moreno RN - 04/27/2009 9:25 AM CST Pt frequently obstructing airway. Pt awakens to verbal/light tactile stim. Pt stimulated when having s/s of obstruction. No desaturation on 10L SFM. BOX ROUTEMAN * Marleen-OP - Nel Moreno RN - 04/27/2009 9:13 AM CST OA d/c'd by anesthesia provider. BOX ROUTEMAN * Operative Report - Arleth Hussein MD [...] suture lines were oversewn with in terrupted [id number] 3-0 Vicryl if necessary. Additional local anesthetic was infiltrated bilaterally. A small piece of Gelfoam was placed in the anal canal. Fluffs and mesh panties completed the dressing. The patient was then rolled back over to the stretcher, extubated, and taken to recovery in excellent condition. Counts were complete x2 at the termination of the case. BOX ROUTEMAN * Marleen-OP - Ellen Whaley RN - 04/27/2009 7:33 AM CST Intra-Op Medications Normal Saline 0.9% 1,000 mL for irrigation. 0.25% bupivacaine and 1%lidocaine mixed 1:1 45 Ml injected Gelfoam Report to pacu at 854 BOX ROUTEMAN * Marleen-OP - Jolie Bee RN - [...] pain/comfort utilizing verbal/nonverbal pain scales; assess culturalor hoahaoism indicators attached to pain; administer pain medications as prescribed; utilize non-pharmacologic pain control and comfort measures Expected Outcome: Patient demonstrates and reports adequate pain control Outcome Met: yes BOX ROUTEMAN * OR Anesthesia - Randi Mcleod AA-Dejuan - 04/26/2009 9:09 PM CST Pre-Anesthesia Evaluation - Long Form 04/26/2009 9:09 PM Name: Zully Castañeda Age: 58 y.o. Sex: female CSN: [id number] Procedure: Procedure(s): HEMORRHOIDECTOMY Surgeons/Assistants: Surgeon(s) and Role: [...] have spoken to the patient. Randi LEON BOX ROUTEMAN documented in this encounter Miscellaneous Notes * Patient Instructions - Stl Scanning, Provider - 04/29/2009 2:37 PM JUKEBOX ROUTEMAN * Scanned Form - Stl Scanning, Provider - 04/29/2009 2:36 PM JUKEBOX ROUTEMAN * Scanned Form - Stl Scanning, Provider - 04/29/2009 2:36 PM JUKEBOX ROUTEMAN * Scanned Form - Stl Scanning, Provider - 04/29/2009 2:36 PM JUKEBOX ROUTEMAN documented in this encounter Plan of Treatment Not on file documented as of this encounter Procedures Procedure Name Priority Date/Time Associated Diagnosis Comments PATHOLOGY Routine 04/27/2009 10:09 AM JUKEBOX ROUTEMAN HEMORRHOIDECTOMY 04/27/2009 7:06 AM JUKEBOX ROUTEMAN HEMORRHOIDS documented in this encounter Results * PATHOLOGY (04/27/2009 10:09 AM JUKEBOX ROUTEMAN) SURGICAL PATHOLOGY ?[facility] ?[address] ? [place], [place] ??[address] ? Patient: ??ZULLY CASTAÑEDA ? : ??1950 ? Procedure Date: ??04/27/2009 ? Accession Date: ??04/27/2009 ? Case No: ??[id number] ? Ordering Dr: ??ARLETH HUSSEIN ? Case type SW is performed by [facility], [place], [place]; ? all other case types are performed by [facility], [place], ? [place] ?SURGICAL PATHOLOGY & NON-GYNECOLOGIC CYTOPATHOLOGY [...] Sectioning demonstrates a hemorrhagic cut surface. ? Pier Runner sections are submitted in block A1. ? [facility]/DUNIA 04.27.2009 12:59 pm ? Microscopic: ? The slide is labeled [id number] and Zully Castañeda. ? Sections show focally hyperkeratotic squamous epithelium and rectal ? glandular epithelium with a focal erosion. The underlying veins are ? engorged and dilated. ? DJG/LAI 04.28.2009 11:48 am ? Staging Form: ? No ? ELECTRONIC SIGNATURE FOR CHRISTOPHER HEREDIA M.D.- 04/28/09 04:05 pm [facility] Specimen of unknown material (specimen) 04/27/2009 10:09 AM JUKEBOX ROUTEMAN Arleth Hussein MD PATHOLOGY/CYTOLOGY O [facility] CLIA# [id number] [address] [place] [address] documented in this encounter Visit Diagnoses Not on filedocumented in this encounter Administered Medications Inactive Administered Medications - up to 3 most recent administrations Medication Order MAR Action Action Date Dose Rate Site cefoxitin (MEFOXIN) infusion 2,000 mg 2,000 mg, IV, PRE-PROCEDURE ONCE, 1 dose, Starting on Liliana 04/27/09 at 0732, Until Liliana 04/27/09 at 0733, Stat Given 04/27/2009 7:33 AM JUKEBOX ROUTEMAN 2,000 mg oxycodone-acetaminophen (PERCOCET) 5-325 mg per tablet 2 Tab 2 Tablet, Oral, EVERY 4 HOURS PRN, Starting on Liliana 04/27/09 at 0858, Until Liliana 04/27/09 at 1715, Pain, Moderate, For Pain Scale 4-6, Routine Given 04/27/2009 10:48 AM JUKEBOX ROUTEMAN 1 Tablet documented in this encounter Active and Recently Administered Medications Times are shown in JUKEBOX ROUTEMAN. Scheduled Medication Order 04/25/2009 04/26/2009 04/27/2009 cefoxitin [...] RN) documented in this encounter Care Teams Construction Equipment Overhauler Relationship Specialty Start Date End Date Jamel Barrow MD [address] [place] [address] PCP - General 04/01/05 documented as of this encounter
--- OUTSIDE RECORDS SUMMARY | 2024-03-30 01:05 | XMS_ITS | Encounter Summary ---
Author Organization [facility] Address [address] [place] [address] Care Team Providers Care Motor Coach Tour Operator Name Role Phone Jamel Barrow MD Primary Care Provider [phone] Encounter Details Date Type Department Care Team (Latest Contact Info) Description 04/24/2009 9:29 AM ROOF TRUSS MACHINE TENDER - 04/24/2009 11:59 PM ROOF TRUSS MACHINE TENDER Hospital Encounter [id number] [place] [address] Arleth Genao MD [address] [place] [address] Discharge Disposition: Home or Self [...] Sign Reading Time Taken Comments Blood Pressure 149/82 04/24/2009 9:40 AM ROOF TRUSS MACHINE TENDER Pulse 61 04/24/2009 9:40 AM ROOF TRUSS MACHINE TENDER Temperature - - Respiratory Rate - - Oxygen Saturation - - Inhaled Oxygen Concentration - - Weight 108.4 kg (239 lb) 04/24/2009 9:40 AM ROOF TRUSS MACHINE TENDER Height 170.2 cm (5' 7 ) 04/24/2009 9:40 AM ROOF TRUSS MACHINE TENDER Body Mass Index 37.43 04/24/2009 9:40 AM ROOF TRUSS MACHINE TENDER documented in this encounter Medications at Time [...] daily. hs documented as of this encounter Procedure Notes * Micaela Chavarria, Provider - 05/03/2009 2:18 PM CSTAssociated Order(s): EKG 12-LEAD documented in this encounter OR Notes * OR Anesthesia - Noemí Wilcox MD - 04/24/2009 10:30 AM CST Pre-Procedure Anesthesiology Consultation and Evaluation (PACE) Service 04/24/2009 10:30 AM Name: Cassandra Romero Age: 58 y.o. Sex: female CSN: [id number] Procedure: Surgeons/Assistants:Hemorrhoidectomy-N/A Arleth Genao Allergies Allergen Reactions ??? Celebrex (Celecoxib) Itching ??? Aspirin Nausea and Vomiting Current outpatient prescriptions Medication Sig Dispense Refill ??? fluoxetine (PROZAC) 20 mg Oral capsule Take 20 mg by mouth daily. hs ??? bisoprolol-hydrochlorothiazide (ZIAC) 10-6.25 mg Oral tablet Take 1 Tab by mouth daily. hs There are no active problems to display [...] Asthma. Musculoskeletal: Arthritis Neck, Knees Neurological: negative Endocrine negative PHYSICAL EXAM BP 149/82 Pulse 61 Ht 5' 7 (1.702 m) Wt 239 lb (108.41 kg) Weight: Wt - Scale: 239 lb (108.41 kg) (04/24/09 0940) Height: Last 1 Encounter Ht Readings: Date Ht 04/24/2009 5' 7 (1.702 m) BMI: Body mass index is 37.43 kg/(m^2). General Appearance: Alert, oriented, no acute distress Airway: normal range of motion; Airway Class: II (soft palate, uvula, fauces visible); Special Considerations None Dentition: Normal good Lungs: clear to auscultation bilaterally, normal respiratory effort Heart: regular rate and rhythm, S1, S2 normal, no murmur, click, rub or gallop Neuro: alert, oriented x 3, no defects noted in general exam. Extremities: moves all extremities equally LABS No results found for this basename: WBC,MANUALWBC,HGB,HGBPOC,HCT,HCTPOC,PLT,MCV No results found for this basename: NA,K,CL,CO2,CA,BUN,CREAT,GLUCOSE,ANIONGAP,BCRATIO No results found for this basename: INR,PT,PROTIMEPOC No results found for this basename: HCGURPOC,HCGQUALUR,HCGQUAL,HCGQUANT,HCGINTACT EKG: sinus bradycardia Other Studies/Considerations: None Risks/Alternatives discussed. Questions solicited and answered. Yes Postop pain management discussed yes Smoking/Tobacco Counseling: None Recommendations:None REPORT AND NECESSARY FOLLOW-UP History and physical performed in [facility]; tests (ECG, blood work) reviewed. No Further testing required before surgery: Yes Abnormal Results Found: no Further Testing or Evaluation Required: no Final [facility] Review: May proceed with procedure/surgery: yes Noemí Wilcox MD TRUSS MACHINE TENDER documented in this encounter Plan of Treatment Not on file documented as of this encounter Procedures Procedure Name Priority Date/Time Associated Diagnosis Comments EKG 12-LEAD Routine 05/03/2009 2:23 PM ROOF TRUSS MACHINE TENDER HEMOGLOBIN AND HEMATOCRIT Routine 04/24/2009 9:45 AM ROOF TRUSS MACHINE TENDER BASIC METABOLIC PANEL Routine 04/24/2009 9:45 AM ROOF TRUSS MACHINE TENDER documented in this encounter Results * EKG 12-LEAD (05/03/2009 2:23 PM ROOF TRUSS MACHINE TENDER) Narrative Procedure Note Stl Scanning, Provider - 05/03/2009 2:18 PM ROOF TRUSS MACHINE TENDER Arleth Genao MD ECG ORDERABLES * BASIC METABOLIC PANEL (04/24/2009 9:45 AM ROOF TRUSS MACHINE TENDER) SODIUM 140 135 - 145 mmol/L [facility] POTASSIUM 3.9 3.5 - 4.9 mmol/L [facility] CHLORIDE 102 96 - 108 mmol/L [facility] CO2 28 22 - 30 mmol/L [facility] CALCIUM 9.3 8.6 - 10.2 mg/dL [facility] BUN 18 6 - 20 mg/dL [facility] CREATININE 0.78 0.51 - 0.95 mg/dL [facility] GLUCOSE 83 65 - 99 mg/dL [facility] GFR, >60 >=60 mL/min/1.7 sq meter [facility] GFR >60 >=60 mL/min/1.7 sq meter [facility] Comment: ansiModification of Diet in Renal Disease (MDRD) study formula. Estimated GFR rate interpretative information for both Americans and non- Americans is available on the [facility] Intranet at: [email or web address] Select: Lab Policies and Procedures Select: Reference Ranges - GFR Blood specimen (specimen) 04/24/2009 9:45 AM ROOF TRUSS MACHINE TENDER 04/24/2009 11:10 AM ROOF TRUSS MACHINE TENDER Narrative [facility] - 04/24/2009 11:51 AM ROOF TRUSS MACHINE TENDER rm ??4 Arleth Genao MD CHEMISTRY ORDERABLES Performing Organization Address City/[facility]/ZIP Co de Phone Number [facility] CLIA# [id number] [address] [place] [address] * HEMOGLOBIN AND HEMATOCRIT (04/24/2009 9:45 AM ROOF TRUSS MACHINE TENDER) HEMOGLOBIN 11.9 11.8 - 14.8 g/dL [facility] HEMATOCRIT 35.9 35.5 - 44.0 % [facility] Blood specimen (specimen) 04/24/2009 9:45 AM ROOF TRUSS MACHINE TENDER 04/24/2009 11:10 AM ROOF TRUSS MACHINE TENDER Narrative [facility] - 04/24/2009 11:31 AM ROOF TRUSS MACHINE TENDER rm ??4 Arleth Genao MD HEMATOLOGY ORDERABLE S Performing Organization Address City/[facility] Co de Phone Number [facility] CLIA# [id number] [address] [place] [address] documented in this encounter Visit Diagnoses Not on filedocumented in this encounter Care Teams Motor Coach Tour Operator Relationship Specialty Start Date End Date Jamel Barrow MD [address] [place] [address] PCP - General 04/01/05 documented as of this encounter
== END 2024-03-23 10:10 ==
LOC: ASC 08:57
PROVIDERS: Visit Provider Anesthesiology Pain Medicine
PROC: (CPT G0260; principal; 2024-03-23 10:00)
DX: M46.1 Sacroiliitis, not elsewhere classified (principal); G89.29 Other chronic pain
CPT/HCPCS: G0260; 27096; 99199

== ENCOUNTER 2024-04-13 09:17 | Outpatient (CLI) | payer MEDICARE, SELFPAY ==
--- NOTE | ~2024-04-13 | XR_ITS ---
Right Shoulder Technique: AP and axillary views were obtained. Clinical History: Pain Findings: No fracture or dislocation is seen. Osseous alignment is anatomic. The glenohumeral joint i s intact. There is moderate AC joint degenerative change. Soft tissues are unremarkable. Impression: Moderate AC joint degenerative change. Reviewed, dictated and finalized at location . AND OIL CHECKER Impression: Moderate AC joint degenerative change.
== END 2024-04-13 09:18 | disposition home or self-care (01) ==
PROVIDERS: PCP Student in an Organized Health Care Education/Training Program; Visit Provider Student in an Organized Health Care Education/Training Program
DX: M19.011 Primary osteoarthritis, right shoulder (principal)
CPT/HCPCS: 73030

== ENCOUNTER 2024-05-18 06:17 | Day surgery (SDC) | payer MEDICARE, SELFPAY ==
[2024-05-11 09:06] VITALS: BMI 35.3
[2024-05-18 07:15] VITALS: BP 157/79; PULSE 66; RESP 16; TEMP 36.9; O2SAT 96
--- NOTE | 2024-05-18 07:16 | PM.HPGS ---
History of Present Illness History of Present Illness Consent: Risks, benefits, and alternatives have been discussed and questions answered. Patient agrees to proceed with procedure. Chief complaint: Sacroiliitis, chronic low back pain Narrative: Cassandra Romero is a 73 year old female with chronic, recalcitrant and disabling left lumbosacral back pain secondary to sacroiliac joint arthropathy, sacroiliitis with failure to respond to aggressive conservative measures including PT, oral and topical analgesics, opioid and nonopioid analgesics, rest, time and activity/behavioral modification over the past 1-2 years who presents for diagnostic/prognostic intra-articular block of the left SI joint(#1) under fluoroscopic guidance and with contrast control. Review of Systems Review of Systems: Patient denies any new infectious, allergic, cardiopulmonary, neurologic or constitutional symptoms or changes in activity tolerance or exercise capacity including new or progressive SOB/TAYLOR, peripheral edema, productive cough, dysuria, nausea/vomiting, diarrhea, weight change, fevers/chills/night sweats, new or progressive neurologic deficit, cognitive or mood changes since last seen, except as documented in the HPI. All systems reviewed & are unremarkable except as noted in HPI and below PMFSH Past Medical History Medical History Migraine TMJ arthropathy surgery in 1981 HTN (hypertension) TMJ (dislocation of temporomandibular joint) Surgical History Surgical History H/O cervical spine surgery History of cholecystectomy H/O: hysterectomy H/O neck surgery History of knee replacement (~03/2008) Family History Family History Father Family history of malignant neoplasm, Onset Age: 52 Patient's father is Mother Family history of malignant neoplasm Hypertension Carcinoma of colon, Onset Age: 61 Sibling Carcinoma of colon Other Diabetes mellitus Family history of allergic disorder Social History Social History Smoking status: Never smoker Second hand tobacco smoke exposure: No Alcohol intake: never Substance use: never Substance use type: does not use Concerned About Future Housing: Decline to Answer Difficulty Paying Gas/Electric Bills: Decline to Answer Difficulty Paying for Meds: Decline to Answer Currently Unemployed: Decline to Answer Education: Decline to Answer Difficulty w/ Childcare or Family Care: Decline to Answer Living arrangements: with family Spiritual care concerns: No Meds Home Medications and Allergies Home Medications ?Medication ?Instructions ?Recorded ?Confirmed ?Type glucosamine [id number] 1 tablet PO DAILY 12/31/19 05/11/24 History joselyn 1,500 mg-400 unit-100 mg tablet (Glucosamine Daily Complex) Liver Antioxidant Extract 1 cap PO DAILY 04/18/22 05/11/24 History Pc Liver And Brain Support 1 cap PO DAILY 04/18/22 05/11/24 History Phytoceramides 1 cap PO DAILY 04/18/22 05/11/24 History multivitamin 1 tablet PO DAILY 04/18/22 05/11/24 History chondroitin sulfate A sodium 400 400 mg PO DAILY 04/25/23 05/11/24 History mg capsule docosahexaenoic acid 200 mg 200 mg PO DIRECTED 04/25/23 05/11/24 History capsule (Algal [place]-3 DHA) coenzyme Q10 200 mg capsule (Co 200 mg PO DAILY 07/22/23 05/11/24 History Q-10) pyridoxine (vitamin B6) 100 mg 100 mg PO DAILY 07/22/23 05/11/24 History tablet levothyroxine 75 mcg tablet 75 mcg PO DAILY #90 tabs 12/09/23 05/11/24 Rx losartan 50 mg-hydrochlorothiazide 1 tablet PO DAILY #90 tabs 12/18/23 05/11/24 Rx 12.5 mg tablet metoprolol succinate 100 mg 100 mg PO DAILY #90 tabs 02/24/24 05/11/24 Rx tablet,extended release 24 hr famotidine 20 mg tablet 20 mg PO BID #60 tabs 04/13/24 05/11/24 Rx Allergies Allergy/AdvReac Type Severity Reaction Status Date / Time celecoxib Allergy Unknown Itching Verified 05/17/24 11:34 aspirin AdvReac Unknown Nausea Verified 05/17/24 11:34 atorvastatin AdvReac Unknown muscle Verified 05/17/24 11:34 cramps ezetimibe AdvReac Unknown leg cramps Verified 05/17/24 11:34 fenofibrate AdvReac Unknown Skin Verified 05/17/24 11:34 Reaction omega-3 acid ethyl esters AdvReac Unknown Nausea Verified 05/17/24 11:34 (Lovaza) pitavastatin (Livalo) AdvReac Unknown Nausea Verified 05/17/24 11:34 rosuvastatin AdvReac Unknown leg cramps Verified 05/17/24 11:34 simvastatin (Vytorin) AdvReac Unknown leg cramps Verified 05/17/24 11:34 Exam Narrative: The patient's physical exam is essentially unchanged from prior examination on 04/13/2024. Specifically, patient demonstrates normal lung capacity, tidal volume and respiratory rate without wheezes, crackles, rales or rubs. Heart rate and rhythm are regular without murmurs, gallops or rubs. No JVD. Pulses 2+ globally without increasing peripheral edema. AAOx3 with no evidence of confusion, intoxication or altered mental state, NC/AT without acute distress or altered consciousness. Speech, cognition, mood, insight and judgment at baseline and within normal limits. Assessment and Plan Assessment and plan (1) Arthropathy of sacroiliac joint: Code(s): M47.818 - Spondylosis without myelopathy or radiculopathy, sacral and sacrococcygeal region Status: Acute Assessment and Plan: Proceed as planned with diagnostic/prognostic intra-articular block of the left SI joint(#1) under fluoroscopic guidance and with contrast control. (2) Lumbosacral spondylosis: Code(s): M47.817 - Spondylosis without myelopathy or radiculopathy, lumbosacral region Status: Acute (3) Sacroiliitis: Code(s): M46.1 - Sacroiliitis, not elsewhere classified Status: Acute (4) Chronic pain: Code(s): G89.29 - Other chronic pain Status: Acute
--- NOTE | 2024-05-18 07:20 | WPDHPUPDATE1 ---
History and Physical Update Update Date/Time: 05/18/24 07:20 History and Physical has been reviewed, including an updated exam of the patient. There are NO changes in the patient's condition. Risks, benefits, and alternatives have been discussed and questions answered. Patient agrees to proceed with procedure.
--- NOTE | 2024-05-18 07:21 | W.PM.PROC2 ---
Procedure Note - Detailed Date of Procedure 05/18/24 Pre-op Diagnosis Sacroiliitis, chronic low back pain Post-op Diagnosis Same Procedure Performed Diagnostic/Prognostic Block of the left Sacroiliac Joint by Intra-Articular Injection of Local Anesthetic Under Fluoroscopic Guidance and With Contrast Control. Surgeon Harrison Hoover MD Forestry Crew Chief None. Anesthesia Local ([Local anesthetic infiltration] in the prone position.) Description of Procedure INFORMED CONSENT: Risks, benefits and alternatives to the procedure were discussed in detail with the patient who expressed explicit understanding and consent to proceed. Patient was informed verbally and in written form regarding the risks associated with the procedure including the low risk of serious infection, bleeding/bruising, allergic reaction, local anesthetic toxicity, nerve or organ injury, paralysis, procedural site pain or discomfort, worsening pain and/or mobility, failure to treat and/or disfigurement. The patient expressed explicit understanding and consent to proceed. All materials required for the procedure were available prior to procedure start. Site and side were marked prior to procedure and confirmed in the presence of the patient. PROCEDURE IN DETAIL: The patient was brought to the procedural suite and placed in the prone position. Patient was made comfortable with use of pillows under the head/chest, hips and ankles. Skin overlying the injection site on the affected side was prepared broadly with ChloraPrep applicator and draped in a sterile manner. Aseptic technique was used throughout. The left SI joint was identified in the AP view and contralateral oblique angulation with caudal tilt was utilized to optimize visualization of the inferior and medial joint line representing the posterior joint space. Local anesthesia was established by infiltration with approximately 5 mL of 2% PF lidocaine via a 1-1/2 inch 27-gauge needle. A 22-gauge 3.5 inch Quincke spinal needle was advanced until the needle entered the inferior third of the posterior joint space approximately 1cm cephalad from its most inferior point. Appropriate final needle position was confirmed in the AP, lateral and oblique views. In the oblique view, 0.5 mL of Omnipaque 300 contrast medium was injected after negative aspiration for CSF, blood or other bodily fluid, showing appropriate intra-articular spread of contrast without evidence of intravascular, perineural or intrathecal placement. 1.5 mL of 0.5% PF bupivacaine was injected after repeat negative aspiration. Appropriate spread of the injectate was confirmed with washout of previous injected contrast. No parasthesias were elicited. Needle was removed completely intact without difficulty. Images were saved and documented in the patient chart. Patient's skin was cleansed and sterile bandage applied. The patient tolerated the procedure well. The patient was transported to the recovery area in stable condition where they were observed for an appropriate amount of time prior to discharge, without evidence of complication. The patient was instructed to avoid excessive activity for the next 48 hours, including climbing and frequent use of stairs. Showers only for 48 hours. They were instructed not to drive or operate heavy machinery for 24 hours. They are to monitor for severe headaches, fevers, chills, night sweats, erythema/swelling at the site or any other signs of infection, bleeding/bruising, bowel or bladder changes as well as new pain, weakness or numbness in the upper or lower extremity. Should they notice these changes, they are instructed to call our office immediately or report directly to the nearest Emergency Department if no answer or if after posted office hours. COMPLICATIONS: None. COMMENTS: None. CONTRAST WASTED: 29.5mL Omnipaque 300. Complications No immediate complications Condition Stable Disposition Same day [facility] Billing Surgery - Charge Forward: Surgery Billing
[2024-05-18 07:30] VITALS: BMI 35.9
[2024-05-18 08:02] VITALS: BP 190/89; PULSE 66; RESP 17; O2SAT 94
[2024-05-18 08:09] VITALS: BP 184/81; PULSE 63; RESP 16; O2SAT 96
[2024-05-18] MEDS: BUPivacaine HCL 0.5% 10 ML AMP INFILTRATE (08:09)
[2024-05-18] MEDS: LIDOCAINE 1% PF INJ 5 ML VIAL XX (08:12)
[2024-05-18 08:15] VITALS: BP 155/67; PULSE 60; RESP 16; O2SAT 97
== END 2024-05-18 08:25 | disposition home or self-care (01) ==
PROVIDERS: PCP Student in an Organized Health Care Education/Training Program; Visit Provider Anesthesiology Pain Medicine
PROC: (CPT 27096; principal; 2024-05-18 08:00)
DX: M46.1 Sacroiliitis, not elsewhere classified (principal); M54.50 Low back pain, unspecified; G89.29 Other chronic pain
CPT/HCPCS: 27096; 99199; G0260

== ENCOUNTER 2024-06-15 11:17 | Outpatient (CLI) | payer MEDICARE, SELFPAY ==
--- NOTE | ~2024-06-15 | MM_ITS ---
EXAMINATION: MM diagnostic constantin BI w coby HISTORY: Prior benign biopsy TECHNIQUE: 3-D tomosynthesis images of the breasts were performed and synthetic 2-D images were gener ated. CAD analysis was submitted and interpreted. COMPARISON: 06/10/2023, 05/14/2023, 05/01/2022, 02/27/2021 BREAST PARENCHYMAL COMPOSITION:Dense: The breasts are heterogeneously dense, which may obscure small masses. FINDINGS: Parenchyma pattern of the breasts is unchanged. No suspicious mass lesion or distortion. No suspicious microcalcifications. Right breast biopsy marker noted. IMPRESSION: No mammographic evidence for malignancy. BI-RADS Category 2: Benign finding(s). Reviewed, dictated and finalized at location .
--- OUTSIDE RECORDS SUMMARY | 2024-06-15 12:40 | XMS_ITS | Encounter Summary ---
Author Organization [facility] Address [address] [place] [address] Care Team Providers Care Health Education Assistant Name Role Phone Jamel Barrow MD Primary Care Provider [phone] Encounter Details Date Type Department Care Team (Latest Contact Info) Description 04/01/2005 Outpatient Historical HIS CARD STEWARD/STEWARDESS THIRD CLASS Franklin Calderon MD [address] [place] [address] [place] [address] Yordy Falcon MD NO ADDRESS ON FILE CERVICAL SPONDYLOSIS (Primary Dx) Social History Tobacco Use Types Packs/Day Years Used Date Smoking Tobacco: Never Assessed Comments Unknown Sex and Gender Information Value Date Recorded Sex Assigned at Not on file Legal Sex Female 5:00 AM WORKERS' COMPENSATION MEDIATOR Gender Identity Not on file Sexual Orientation Not on file documented as of this encounter Plan of Treatment Not on file documented as of this encounter Procedures Procedure Name Priority Date/Time Associated Diagnosis Comments SPINAL FLUID CELL COUNT W/REFLEXIVE DIFF Routine 04/01/2005 2:52 PM WORKERS' COMPENSATION MEDIATOR SPINAL FLUID CELL COUNT W/REFLEXIVE DIFF Routine 04/01/2005 2:52 PM WORKERS' COMPENSATION MEDIATOR TOTAL PROTEIN, CSF Routine 04/01/2005 2: 52 PM WORKERS' COMPENSATION MEDIATOR GLUCOSE, CSF Routine 04/01/2005 2:52 PM WORKERS' COMPENSATION MEDIATOR documented in this encounter Results * (ABNORMAL) SPINAL FLUID CELL COUNT W/REFLEXIVE DIFF (04/01/2005 2:52 PM WORKERS' COMPENSATION MEDIATOR) LYMPHOCYTES, CSF 91(H) 40 - 80 % INTERFACE SYSTEM MONOCYTES/ HISTIOCYTES, CSF 9(L) 15 - 45 % INTERFACE SYSTEM # CELLS COUNTED FOR DIFF, CSF 50 WBC Counted INTERFACE SYSTEM 04/01/2005 2:52 PM WORKERS' COMPENSATION MEDIATOR us Yordy Falcon MD BODY FLUIDS AND STOOLS Final Result Performing Organization Address [facility] Phone Number INTERFACE SYSTEM Refer to clinic/hospital department * TOTAL PROTEIN, CSF (04/01/2005 2:52 PM WORKERS' COMPENSATION MEDIATOR) PROTEIN, CSF 45 15 - 60 mg/dL INTERFACE SYSTEM 04/01/2005 2:52 PM WORKERS' COMPENSATION MEDIATOR us Yordy Falcon MD BODY FLUIDS AND STOOLS Final Result Performing Organization Address [facility] Phone Number INTERFACE SYSTEM Refer to clinic/hospital department * GLUCOSE, CSF (04/01/2005 2:52 PM WORKERS' COMPENSATION MEDIATOR) GLUCOSE, CSF 50 41 - 75 mg/dL INTERFACE SYSTEM 04/01/2005 2:52 PM WORKERS' COMPENSATION MEDIATOR us Yordy Falcon MD BODY FLUIDS AND STOOLS Final Result Performing Organization Address [facility] Phone Number INTERFACE SYSTEM Refer to clinic/hospital department * (ABNORMAL) SPINAL FLUID CELL COUNT W/REFLEXIVE DIFF (04/01/2005 2:52 PM WORKERS' COMPENSATION MEDIATOR) COLOR, CSF Colorless Colorless INTERFACE SYSTEM APPEARANCE, CSF Clear Clear INTERFACE SYSTEM TUBE #, CSF 1 INTERFAC E SYSTEM VOLUME, CSF 1.7 mL INTERFAC E SYSTEM WBC, CSF 4 0 - 10 /uL INTERFACE SYSTEM RBC, CSF 4(H) <=0 /uL INTERFACE SYSTEM 04/01/2005 2:52 PM WORKERS' COMPENSATION MEDIATOR us Yordy Falcon MD BODY FLUIDS AND STOOLS Final Result Performing Organization Address [facility] Phone Number INTERFACE SYSTEM Refer to clinic/hospital department documented in this encounter Visit Diagnoses Diagnosis Cervical spondylosis without myelopathy- Primary documented in this encounter Care Teams Health Education Assistant Relationship Specialty Start Date End Date Jamel Barrow MD [address] [place] [address] PCP - General 04/01/05 documented as of this encounter
--- OUTSIDE RECORDS SUMMARY | 2024-06-15 12:40 | XMS_ITS | Clinical Summary ---
Author Organization [facility] Address [address] [place] [address] Phone Care Team Providers Care Spa Receptionist Name Role Phone Jamel Barrow MD Primary Care Provider [phone] Allergies Active Allergy Reactions Criticality Noted Date Comments Aspirin Nausea and Vomiting Low 04/24/2009 Celecoxib Itching Low 04/24/2009 Medications fluoxetine (PROZAC) 20 mg Oral capsule Take 20 mg by mouth daily. hs Active bisoprolol-hydr ochlorothiazide (ZIAC) 10-6.25 mg Oral tablet Take 1 Tab by mouth daily. hs Active lidocaine (XYLOCAINE) 5 % Topical Oint Apply to affected area q 1 hour PRN for Pain. To anus 1 Tube 3 0 Active oxycodone-aceta minophen (PERCOCET) 5-325 mg Oral tablet Take 1-2 Tabs by mouth every 4 hours as needed for Pain. 30 Tab 0 0 Active psyllium (METAMUCIL) Oral Pack Take 1 Packet by mouth 2 times daily. Over the counter medicine. Use instructions on the product. 1 Packet 0 0 Active oxycodone-aceta minophen (PERCOCET) 5-325 mg Oral tablet Take 1-2 Tabs by mouth every 4 hours as needed for Pain. 60 Tab 0 0 Active Social History Tobacco Use Types Packs/Day Years Used Date Smoking Tobacco: Never Alcohol Use Standard Drinks/Week Comments No 0 (1 standard drink = 0.6 oz pur e alcohol) Comments Unknown Sex and Gender Information Value Date Recorded Sex Assigned at Not on file Legal Sex Female 5:00 AM GAS PLANT TECHNICIAN Gender Identity Not on file Sexual Orientation Not on file Last Filed Vital Signs Vital Sign Reading Time Taken Comments Blood Pressure 152/75 04/27/2009 12:37 PM GAS PLANT TECHNICIAN Pulse 78 04/27/2009 12:37 PM GAS PLANT TECHNICIAN Temperature 36.6 C (97.8 F) 04/27/2009 12:37 PM GAS PLANT TECHNICIAN Respiratory Rate 22 04/27/2009 12:37 PM GAS PLANT TECHNICIAN Oxygen Saturation 95% 04/27/2009 12:37 PM GAS PLANT TECHNICIAN Inhaled Oxygen Concentration - - Weight 108.4 kg (239 lb) 04/24/2009 9:42 AM GAS PLANT TECHNICIAN Height 170.2 cm (5' 7 ) 04/24/2009 9:42 AM GAS PLANT TECHNICIAN Body Mass Index 37.43 04/24/2009 9:42 AM GAS PLANT TECHNICIAN Plan of Treatment Health Maintenance Due Date Last Done Comments DTAP/TDAP/TD VACCINES (1 - Tdap) 05/20/1970 BREAST CANCER SCREENING 1991 COLORECTAL SCREENING 05/20/1996 Colorectal Cancer Screening 05/20/1996 FIT-DNA Q 3 years 05/20/1996 FIT/FOBT Q 1 year 05/20/1996 Flex Sig/CT Colonography Q 5 years 05/20/1996 PNEUMOCOCCAL VACCINE 50+ YEARS (1 of 1 - PCV) 05/21/19 02 ZOSTER VACCINE (1 of 2) 05/20/2001 OSTEOPOROSIS SCREENING 05/20/2016 INFLUENZA VACCINE (#1) 2023 RSV VACCINE (60+ or ) (1 - 1-dose 75+ series) 05/20/[address] [place] [address] [place] [address] BLUE ACCESS CHOICE Advance Directives For more information, please contact: [phone] * Full Code (Latest Code Status on File) Date Activated Date Inactivated Comments 04/27/2009 5:49 AM 04/27/2009 5:15 PM Care Teams Spa Receptionist Relationship Specialty Start Date End Date Jamel Barrow MD [address] [place], [place] [id number] PCP - General 04/01/05
== END 2024-06-15 11:18 | disposition home or self-care (01) ==
PROVIDERS: PCP Student in an Organized Health Care Education/Training Program; Visit Provider Physician Assistant Surgical
DX: D24.1 Benign neoplasm of right breast (principal)
CPT/HCPCS: 77062; 77066; G0279

== ENCOUNTER 2024-06-30 09:35 | Outpatient (CLI) | payer MEDICARE, SELFPAY ==
--- NOTE | ~2024-06-30 | XR_ITS ---
EXAMINATION: XR chest 2V DATE: 06/30/2024 10:31 INDICATION: Spondylosis without myelopathy or radiculopathy TECHNIQUE: PA and lateral views of the chest were obtained. COMPARISON: Chest radiograph dated 11/21/2017 FINDINGS: The lungs remain clear with no focal airspace opacities, pulmonary edema, pleural effusion or pneumot horax. The cardiomediastinal silhouette is normal. Postoperative changes from anterior spinal fusion in lower cervical spine with anterior plate-screw fixation. Moderate thoracic spondylosis. Cholecyste ctomy clips in the right upper quadrant. IMPRESSION: 1. No acute cardiopulmonary disease. Reviewed, dictated and finalized at location A.
--- NOTE | 2024-06-30 09:30 | ECG_ITS ---
Test Date: 2024-06-30 09:53:25 Measurements Intervals [place] Rate: 52 P: 25 [place]: 148 QRS: -5 QRSD: 90 T: -17 QT: 405 QTc: 377 Interpretive Statements SINUS BRADYCARDIA LOW QRS VOLTAGE IN PRECORDIAL LEADS PATTERN CONSISTENT WITH PULMONARY DISEASE VOLTAGE CRITERIA FOR LVH T WAVE ABNORMALITY IN INFERIOR LEADS- CONSIDER ISCHEMIA BASELINE ARTIFACT- I, II, AVR, AVL, AVF ABNORMAL ECG No previous ECG available for comparison Electronically Signed On 06-30-2024 10:15:44 CDT by Ryan Isabel D.O.
[2024-06-30 10:15] LABS: Basophils Absolute Auto 0.1 K/mm3 (0.0-0.1); Basophils Percent Auto 0.6 % (0.2-1.2); Eosinophils Absolute Auto 0.1 K/mm3 (0-0.3); Eosinophils Percent Auto 0.5 % (0-4.4); Hematocrit 40.2 % (37.0-47.0); Hemoglobin 13.2 g/dL (12.0-15.0); Immature Granulocyte Absolute 0.05 K/mm3 (0.00-0.031); Immature Granulocyte Percent A 0.5 % (0-0.5); Lymphocytes Absolute Auto 2.28 K/mm3 (0.9-3.2); Lymphocytes Percent Auto 23.6 % (18.3-44.2); Mean Corpuscular HGB Conc 32.8 g/dl (32-36); Mean Corpuscular Hemoglobin 31.6 pg (26-34); Mean Corpuscular Volume 96.2 fl (80-100); Mean Platelet Volume 9.2 fl (7.4-10.4); Monocytes Absolute Auto 0.8 K/mm3 (0.1-0.6); Monocytes Percent Auto 7.7 % (2.6-8.5); Neutrophils Absolute Auto 6.5 K/mm3 (1.3-6.7); Neutrophils Percent Auto 67.1 % (45.5-73.1); Platelet Count Result 273 k/mm3 (150-375); Red Blood Count 4.18 M/mm3 (4.2-5.4); Red Cell Distribution Width 12.2 % (11.5-14.5); White Blood Count 9.7 K/mm3 (4.5-10.0)
[2024-06-30 10:28] LABS: Alanine Aminotransferase 25 U/L (6-35); Albumin Level 4.5 g/dL (3.5-5.1); Alkaline Phosphatase 69 U/L (38-126); Anion Gap 10 mmol/L (4-12); Aspartate Amino Transferase 24 U/L (14-36); Bilirubin,Total 0.6 mg/dL (0.2-1.3); Blood Urea Nitrogen 24 mg/dL (7-17); Calcium 9.3 mg/dL (8.4-10.2); Carbon Dioxide 29 mmol/L (22-30); Chloride 100 mmol/L (98-107); Estimated Glomerular Filt Rate > 60; Glucose 85 mg/dL (65-110); Potassium 3.9 mmol/L (3.4-5.0); Sodium 139 mmol/L (137-145)
--- OUTSIDE RECORDS SUMMARY | 2024-06-30 10:29 | XMS_ITS | Encounter Summary ---
Author Organization [facility] Address [address] [place] [address] Care Team Providers Care Carbonizer Name Role Phone Jamel Barrow MD Primary Care Provider [phone] Encounter Details Date Type Department Care Team (Latest Contact Info) Description 04/01/2005 Outpatient Historical HIS CARD DIRECTOR TARGETED MARKETING Franklin Calderon MD [address] [place] [address] [place] [address] Yordy Falcon MD NO ADDRESS ON FILE CERVICAL SPONDYLOSIS (Primary Dx) Social History Tobacco Use Types Packs/Day Years Used Date Smoking Tobacco: Never Assessed Comments Unknown Sex and Gender Information Value Date Recorded Sex Assigned at Not on file Legal Sex Female 5:00 AM MANAGEMENT REP Gender Identity Not on file Sexual Orientation Not on file documented as of this encounter Plan of Treatment Not on file documented as of this encounter Procedures Procedure Name Priority Date/Time Associated Diagnosis Comments SPINAL FLUID CELL COUNT W/REFLEXIVE DIFF Routine 04/01/2005 2:52 PM MANAGEMENT REP SPINAL FLUID CELL COUNT W/REFLEXIVE DIFF Routine 04/01/2005 2:52 PM MANAGEMENT REP TOTAL PROTEIN, CSF Routine 04/01/2005 2: 52 PM MANAGEMENT REP GLUCOSE, CSF Routine 04/01/2005 2:52 PM MANAGEMENT REP documented in this encounter Results * (ABNORMAL) SPINAL FLUID CELL COUNT W/REFLEXIVE DIFF (04/01/2005 2:52 PM MANAGEMENT REP) LYMPHOCYTES, CSF 91(H) 40 - 80 % INTERFACE SYSTEM MONOCYTES/ HISTIOCYTES, CSF 9(L) 15 - 45 % INTERFACE SYSTEM # CELLS COUNTED FOR DIFF, CSF 50 WBC Counted INTERFACE SYSTEM 04/01/2005 2:52 PM MANAGEMENT REP us Yordy Falcon MD BODY FLUIDS AND STOOLS Final Result Performing Organization Address [facility] Phone Number INTERFACE SYSTEM Refer to clinic/hospital department * TOTAL PROTEIN, CSF (04/01/2005 2:52 PM MANAGEMENT REP) PROTEIN, CSF 45 15 - 60 mg/dL INTERFACE SYSTEM 04/01/2005 2:52 PM MANAGEMENT REP us Yordy Falcon MD BODY FLUIDS AND STOOLS Final Result Performing Organization Address [facility] Phone Number INTERFACE SYSTEM Refer to clinic/hospital department * GLUCOSE, CSF (04/01/2005 2:52 PM MANAGEMENT REP) GLUCOSE, CSF 50 41 - 75 mg/dL INTERFACE SYSTEM 04/01/2005 2:52 PM MANAGEMENT REP us Yordy Falcon MD BODY FLUIDS AND STOOLS Final Result Performing Organization Address [facility] Phone Number INTERFACE SYSTEM Refer to clinic/hospital department * (ABNORMAL) SPINAL FLUID CELL COUNT W/REFLEXIVE DIFF (04/01/2005 2:52 PM MANAGEMENT REP) COLOR, CSF Colorless Colorless INTERFACE SYSTEM APPEARANCE, CSF Clear Clear INTERFACE SYSTEM TUBE #, CSF 1 INTERFAC E SYSTEM VOLUME, CSF 1.7 mL INTERFAC E SYSTEM WBC, CSF 4 0 - 10 /uL INTERFACE SYSTEM RBC, CSF 4(H) <=0 /uL INTERFACE SYSTEM 04/01/2005 2:52 PM MANAGEMENT REP us Yordy Falcon MD BODY FLUIDS AND STOOLS Final Result Performing Organization Address [facility] Phone Number INTERFACE SYSTEM Refer to clinic/hospital department documented in this encounter Visit Diagnoses Diagnosis Cervical spondylosis without myelopathy- Primary documented in this encounter Care Teams Carbonizer Relationship Specialty Start Date End Date Jamel Barrow MD [address] [place] [phone] PCP - General 04/01/05 documented as of this encounter
--- OUTSIDE RECORDS SUMMARY | 2024-06-30 10:29 | XMS_ITS | Clinical Summary ---
Author Organization [facility] Address [address] [place] [address] Phone Care Team Providers Care Relief Mate Name Role Phone Jamel Barrow MD Primary Care Provider [phone] Allergies Active Allergy Reactions Criticality Noted Date [...] on file Legal Sex Female 5:00 AM PLASTIC PANEL INSTALLER Gender Identity Not on file Sexual Orientation Not on file Last Filed Vital Signs Vital Sign Reading Time Taken Comments Blood Pressure 152/75 04/27/2009 12:37 PM PLASTIC PANEL INSTALLER Pulse 78 04/27/2009 12:37 PM PLASTIC PANEL INSTALLER Temperature 36.6 C (97.8 F) 04/27/2009 12:37 PM PLASTIC PANEL INSTALLER Respiratory Rate 22 04/27/2009 12:37 PM PLASTIC PANEL INSTALLER Oxygen Saturation 95% 04/27/2009 12:37 PM PLASTIC PANEL INSTALLER Inhaled Oxygen Concentration - - Weight 108.4 kg (239 lb) 04/24/2009 9:42 AM PLASTIC PANEL INSTALLER Height 170.2 cm (5' 7 ) 04/24/2009 9:42 AM PLASTIC PANEL INSTALLER Body Mass Index 37.43 04/24/2009 9:42 AM PLASTIC PANEL INSTALLER Plan of Treatment Health Maintenance Due Date [...] (1 - 1-dose 75+ series) 05/20/[address] [place] [address] [address] BLUE ACCESS CHOICE Advance Directives For more information, please contact: [phone] * Full Code (Latest Code Status on File) Date Activated Date Inactivated Comments 04/27/2009 5:49 AM 04/27/2009 5:15 PM Care Teams Relief Mate Relationship Specialty Start Date End Date Jamel Barrow MD [address] [place], [place] [phone] PCP - General 04/01/05
[2024-06-30 10:32] LABS: INR 0.9; Prothrombin Time 12.6 Seconds (11.1-14.7)
== END 2024-06-30 09:36 | disposition home or self-care (01) ==
LOC: ANHSURGERY 09:40
PROVIDERS: PCP Student in an Organized Health Care Education/Training Program; Visit Provider Anesthesiology Pain Medicine
DX: Z01.818 Encounter for other preprocedural examination (principal); M47.818 Spondylosis without myelopathy or radiculopathy, sacral and sacrococcygeal region
CPT/HCPCS: 36415; 71046; 80053; 85025; 85610; 85730; 93005

== ENCOUNTER 2024-07-06 03:12 | Day surgery (SDC) | payer MEDICARE, SELFPAY ==
[2024-06-25 14:49] VITALS: BMI 35.9
--- NOTE | 2024-06-25 15:04 | PC.NURSE ---
Report to the Outpatient Waiting Room, entrance under the green pavilion located off [facility], at time __0615am on date __07/06/24 . Planned Procedure Time: _0815am .? Time changes happen often and if your time is changed the preop area will call you the afternoon before. - You and your visitor will be asked to self-screen and do not enter if you have any COVID symptoms. Please call surgeon if you need to reschedule. - A mask is optional within the hospital at this time. Patients-No food or Drink from midnight until time of surgery and no smoking, or chewing tobacco (or any form of nicotine). No chewing gum, candy or mints. Take only the following medications with a SIP of water on the morning of surgery: Levothyroxine, Tylenol if needed DO NOT STOP ANY OF YOUR OTHER PRESCRIPTION MEDICATIONS PRIOR TO SURGERY EXCEPT THE FOLLOWING Hold all vitamins and supplements for 3 days per anesthesiologist.Date to take last dose 07/02/24 Medications to discontinue per physician __HOLD ALL ASA and NSAIDS for 14 days prior and [address] CASTANEDA Date to take last dose____06/18/24 Please no make-up, nail gabonese, hairspray, perfume, deodorant, or body powder the day of surgery.? No jewelry (including any body piercings) or valuables the day of surgery, leave them at home.? Please take a shower or bath the night before, & the morning of, surgery with an antibacterial soap.? Wear comfortable, loose fitting clothing.? - Jewelry must be removed prior to entering the operating room.? Rings and piercings that are not removed may be cut off. - The hospital will not accept responsibility for valuables.? - Please leave all valuables, including medications, at home the day of surgery. If you are going home after surgery, a licensed tanker driver must drive you home.? - NO public transportation without another adult if you receive anesthesia. - We recommend that an adult stay with you for 24 hours following discharge. - We also recommend that you do not drive, make important decision, drink alcoholic beverages, or take any drugs that were not prescribed by your health care provider for at least 24 hours after your discharge time. Follow any additional instructions given to you from your surgeon. Telephone instructions given to __Patient and asked if any additional questions and then verbalized understanding. Patient advised to call surgeon office or pre surgery nurse liaison [phone] if any additional questions.
[2024-07-06] VITALS (9 sets, daily range): BP systolic 98–177; BP diastolic 60–86; PULSE 56–70; RESP 14–22; TEMP 36.2–36.4; O2SAT 94–99; BMI 35.3
--- NOTE | ~2024-07-06 | XR_ITS ---
EXAMINATION: XR fluoroscopy no charge DATE: 07/06/2024 10:23 INDICATION: Left SI joint arthrodesis with hardware implant TECHNIQUE: 34 fluoroscopic images of the left sacroiliac joint were obtained during procedure perform ed by Dr. Hoover. Radiologist was not present for the imaging or procedure. The amount of fluoroscopy t giovanna used during this procedure was 11.6 minutes. Total DAP was 157.28 Gycm^2. COMPARISON: None. FINDINGS: Initial images demonstrate spinal needle advanced into the left sacroiliac joint. Subsequently device s advanced into the right sacroiliac joint resulting in widening of the joint space. Finally an impla nt is placed within the left sacroiliac joint which does not extend beyond the anterior margin of the joint space. Lap sponge markers are seen on a few of the images. IMPRESSION: 1. Fluoroscopy utilized during left sacral iliac joint arthrodesis with implant placement. See proced ure note for further detail. Reviewed, dictated and finalized at location A. IMPRESSION: 1. Fluoroscopy utilized during left sacral iliac joint arthrodesis with implant placement. See procedure note for further detail.
--- OUTSIDE RECORDS SUMMARY | 2024-07-06 03:15 | XMS_ITS | Encounter Summary ---
Author Organization [facility] Address [address] [place] [address] Care Team Providers Care Mixing Picker Tender Name Role Phone Jamel Barrow MD Primary Care Provider [phone] Encounter Details Date Type Department Care Team (Latest Contact Info) Description 04/01/2005 Outpatient Historical HIS CARD PASTE PLANT SUPERVISOR Franklin Calderon MD [address] [place] [address] [place] [address] Yordy Falcon MD NO ADDRESS ON FILE CERVICAL SPONDYLOSIS (Primary Dx) Social History Tobacco Use Types Packs/Day Years Used Date Smoking Tobacco: Never Assessed Comments Unknown Sex and Gender Information Value Date Recorded Sex Assigned at Not on file Legal Sex Female 5:00 AM WIRELESS FIELD TECHNICIAN Gender Identity Not on file Sexual Orientation Not on file documented as of this encounter Plan of Treatment Not on file documented as of this encounter Procedures Procedure Name Priority Date/Time Associated Diagnosis Comments SPINAL FLUID CELL COUNT W/REFLEXIVE DIFF Routine 04/01/2005 2:52 PM WIRELESS FIELD TECHNICIAN SPINAL FLUID CELL COUNT W/REFLEXIVE DIFF Routine 04/01/2005 2:52 PM WIRELESS FIELD TECHNICIAN TOTAL PROTEIN, CSF Routine 04/01/2005 2: 52 PM WIRELESS FIELD TECHNICIAN GLUCOSE, CSF Routine 04/01/2005 2:52 PM WIRELESS FIELD TECHNICIAN documented in this encounter Results * (ABNORMAL) SPINAL FLUID CELL COUNT W/REFLEXIVE DIFF (04/01/2005 2:52 PM WIRELESS FIELD TECHNICIAN) LYMPHOCYTES, CSF 91(H) 40 - 80 % INTERFACE SYSTEM MONOCYTES/ HISTIOCYTES, CSF 9(L) 15 - 45 % INTERFACE SYSTEM # CELLS COUNTED FOR DIFF, CSF 50 WBC Counted INTERFACE SYSTEM 04/01/2005 2:52 PM WIRELESS FIELD TECHNICIAN us Yordy Falcon MD BODY FLUIDS AND STOOLS Final Result Performing Organization Address [facility] Phone Number INTERFACE SYSTEM Refer to clinic/hospital department * TOTAL PROTEIN, CSF (04/01/2005 2:52 PM WIRELESS FIELD TECHNICIAN) PROTEIN, CSF 45 15 - 60 mg/dL INTERFACE SYSTEM 04/01/2005 2:52 PM WIRELESS FIELD TECHNICIAN us Yordy Falcon MD BODY FLUIDS AND STOOLS Final Result Performing Organization Address [facility] Phone Number INTERFACE SYSTEM Refer to clinic/hospital department * GLUCOSE, CSF (04/01/2005 2:52 PM WIRELESS FIELD TECHNICIAN) GLUCOSE, CSF 50 41 - 75 mg/dL INTERFACE SYSTEM 04/01/2005 2:52 PM WIRELESS FIELD TECHNICIAN us Yordy Falcon MD BODY FLUIDS AND STOOLS Final Result Performing Organization Address [facility] Phone Number INTERFACE SYSTEM Refer to clinic/hospital department * (ABNORMAL) SPINAL FLUID CELL COUNT W/REFLEXIVE DIFF (04/01/2005 2:52 PM WIRELESS FIELD TECHNICIAN) COLOR, CSF Colorless Colorless INTERFACE SYSTEM APPEARANCE, CSF Clear Clear INTERFACE SYSTEM TUBE #, CSF 1 INTERFAC E SYSTEM VOLUME, CSF 1.7 mL INTERFAC E SYSTEM WBC, CSF 4 0 - 10 /uL INTERFACE SYSTEM RBC, CSF 4(H) <=0 /uL INTERFACE SYSTEM 04/01/2005 2:52 PM WIRELESS FIELD TECHNICIAN us Yordy Falcon MD BODY FLUIDS AND STOOLS Final Result Performing Organization Address [facility] Phone Number INTERFACE SYSTEM Refer to clinic/hospital department documented in this encounter Visit Diagnoses Diagnosis Cervical spondylosis without myelopathy- Primary documented in this encounter Care Teams Mixing Picker Tender Relationship Specialty Start Date End Date Jamel Barrow MD [address] [place] [phone] PCP - General 04/01/05 documented as of this encounter
--- OUTSIDE RECORDS SUMMARY | 2024-07-06 03:15 | XMS_ITS | Clinical Summary ---
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 Gender Identity Not on file Sexual Orientation Not on file Last Filed Vital Signs Vital Sign Reading Time Taken Comments Blood Pressure 152/75 04/27/2009 12:37 PM OYSTER GRADER Pulse 78 04/27/2009 12:37 PM OYSTER GRADER Temperature 36.6 C (97.8 F) 04/27/2009 12:37 PM OYSTER GRADER Respiratory Rate 22 04/27/2009 12:37 PM OYSTER GRADER Oxygen Saturation 95% 04/27/2009 12:37 PM OYSTER GRADER Inhaled Oxygen Concentration - - Weight 108.4 kg (239 lb) 04/24/2009 9:42 AM OYSTER GRADER Height 170.2 cm (5' 7 ) 04/24/2009 9:42 AM OYSTER GRADER Body Mass Index 37.43 04/24/2009 9:42 AM OYSTER GRADER Plan of Treatment Health Maintenance Due Date [...] (1 - 1-dose 75+ series) 05/20/[address] [place] [address] BLUE ACCESS CHOICE Advance Directives For more information, please contact: [phone] * Full Code (Latest Code Status on File) Date Activated Date Inactivated Comments 04/27/2009 5:49 AM 04/27/2009 5:15 PM Care Teams Orthotist Or Prosthetist Relationship Specialty Start Date End Date Jamel Barrow MD [address] [place], [place] [phone] PCP - General 04/01/05
[2024-07-06] MEDS: LACTATED RINGERS 1,000 ML 30 ML IV CONT ×2 (07:15→11:02)
--- NOTE | 2024-07-06 07:54 | WPDANESEPPF ---
Anes - Initial Pre Proc Eval Procedure: Operation Date: 07/06/24 08:15 Proposed Procedures p Left Posterior Sacroiliac Joint Arthrodesis with Lateral Transfixation (Nevro 1) Under Fluoroscopic Guidance - Harrison Hoover MD Date/Time: 07/06/24 07:54 Surgeon: Harrison Hoover MD Pre Op Diagnosis: sacroilitis,spondylosis w/o myelopathy or radiculo Patient Data Age: 74 Gender: F Height: 1.7 m Weight: 102.3 kg Last Vital Signs Temp 36.4 C 07/06/24 06:23 Pulse 56 L 07/06/24 06:23 Resp 16 07/06/24 06:23 BP 156/70 H 07/06/24 06:23 Pulse Ox 96 07/06/24 06:23 O2 Del Method Room Air 07/06/24 06:23 Allergies Allergy/AdvReac Type Severity Reaction Status Date / Time celecoxib Allergy Unknown Itching Verified 07/06/24 07:24 aspirin AdvReac Unknown Nausea Verified 07/06/24 07:24 atorvastatin AdvReac Unknown muscle Verified 07/06/24 07:24 cramps ezetimibe AdvReac Unknown leg cramps Verified 07/06/24 07:24 fenofibrate AdvReac Unknown Skin Verified 07/06/24 07:24 Reaction omega-3 acid ethyl esters AdvReac Unknown Nausea Verified 07/06/24 07:24 (Lovaza) pitavastatin (Livalo) AdvReac Unknown Nausea Verified 07/06/24 07:24 rosuvastatin AdvReac Unknown leg cramps Verified 07/06/24 07:24 simvastatin (Vytorin) AdvReac Unknown leg cramps Verified 07/06/24 07:24 Home Medications ?Medication ?Instructions ?Recorded ?Confirmed ?Type Pc Liver And Brain Support 1 cap PO DAILY 04/18/22 06/25/24 History Phytoceramides 1 cap PO DAILY 04/18/22 06/25/24 History multivitamin 1 tablet PO DAILY 04/18/22 06/25/24 History levothyroxine 75 mcg tablet 75 mcg PO DAILY #90 tabs 12/09/23 06/25/24 Rx losartan 50 mg-hydrochlorothiazide 1 tablet PO DAILY #90 tabs 12/18/23 06/25/24 Rx 12.5 mg tablet metoprolol succinate 100 mg 100 mg PO DAILY #90 tabs 02/24/24 06/25/24 Rx tablet,extended release 24 hr acetaminophen 650 mg 650 mg PO Q8H PRN pain 06/25/24 06/25/24 History tablet,extended release (8 Hour Pain Reliever) Patient hx anesthesia problems: none Family hx anesthesia problems: none Results Review: All pre-operative results and documents have been reviewed as part of the pre-operative evaluation. [facility] Past Medical History Medical History Arthropathy of sacroiliac joint Migraine TMJ arthropathy surgery in 1981 HTN (hypertension) TMJ (dislocation of temporomandibular joint) Surgical History Surgical History (Updated 06/16/24 @ 11:18 by Ginny Mike) History of surgery on wrist H/O cervical spine surgery History of cholecystectomy H/O: hysterectomy H/O neck surgery History of knee replacement (~03/2008) Family History Family History (Updated 06/16/24 @ 11:19 by Ginny Mike) Father Family history of malignant neoplasm, Onset Age: 52 Patient's father is Mother Family history of malignant neoplasm Hypertension Carcinoma of colon, Onset Age: 61 Sibling Carcinoma of colon Grandparent Cerebrovascular accident Other Diabetes mellitus Family history of allergic disorder Social History Social History (Updated 06/23/24 @ 13:07 by Nena Pino [facility]) Smoking status: Never smoker Second hand tobacco smoke exposure: Yes Alcohol intake: never Substance use: never Substance use type: does not use Current Housing: Decline to Answer Concerned About Future Housing: Decline to Answer Difficulty Paying Gas/Electric Bills: Decline to Answer Difficulty Paying for Meds: Decline to Answer Currently Unemployed: Decline to Answer Education: Decline to Answer Difficulty w/ Childcare or Family Care: Decline to Answer Living arrangements: with family Additional living arrangements comments: Spiritual care concerns: No Anes - Eval Final PreProcedure Day of Procedure 07/06/24 07:54 Patient weight: obese Heart: regular rate and rhythm Lungs: clear to auscultation Airway: Mallampati scale class II Neurological: alert and oriented Last oral intake: >/= 8 hours ASA classification: III Emergent: no Anesthetic plan: proceed Anesthesia type and monitoring: general ETT and standard monitoring Results Review: All pre-operative results and documents have been reviewed as part of the pre-operative evaluation. Informed Consent: The patient's anesthetic plan and its attendant risks and benefits were discussed with the patient/family/POA. Questions were solicited and answers provided to the satisfaction of the patient/family/POA.
--- NOTE | 2024-07-06 08:11 | PM.HPGS ---
History of Present Illness History of Present Illness Consent: Risks, benefits, and alternatives have been discussed and questions answered. Patient agrees to proceed with procedure. Chief complaint: sacroilitis,spondylosis w/o myelopathy or radiculo Narrative: Cassandra Romero is a 74 year old female with chronic, recalcitrant and disabling bilateral lumbosacral back pain secondary to sacroiliac joint arthropathy, sacroiliitis, degenerative spondylosis with failure to respond to aggressive conservative measures including PT, oral and topical analgesics, opioid and nonopioid analgesics, rest, time and activity/behavioral modification over the past 1-2 years who presents for minimally invasive posterior SI arthrodesis with lateral transfixation (Nevro1) of the left Sacroiliac joint under fluoroscopic guidance. Review of Systems Review of Systems: Patient denies any new infectious, allergic, cardiopulmonary, neurologic or constitutional symptoms or changes in activity tolerance or exercise capacity including new or progressive SOB/TAYLOR, peripheral edema, productive cough, dysuria, nausea/vomiting, diarrhea, weight change, fevers/chills/night sweats, new or progressive neurologic deficit, cognitive or mood changes since last seen, except as documented in the HPI. All systems reviewed & are unremarkable except as noted in HPI and below PMFSH Past Medical History Medical History Arthropathy of sacroiliac joint Migraine TMJ arthropathy surgery in 1981 HTN (hypertension) TMJ (dislocation of temporomandibular joint) Surgical History Surgical History (Updated 06/16/24 @ 11:18 by Ginny Mike) History of surgery on wrist H/O cervical spine surgery History of cholecystectomy H/O: hysterectomy H/O neck surgery History of knee replacement (~03/2008) Family History Family History (Updated 06/16/24 @ 11:19 by Ginny Mike) Father Family history of malignant neoplasm, Onset Age: 52 Patient's father is Mother Family history of malignant neoplasm Hypertension Carcinoma of colon, Onset Age: 61 Sibling Carcinoma of colon Grandparent Cerebrovascular accident Other Diabetes mellitus Family history of allergic disorder Social History Social History (Updated 06/23/24 @ 13:07 by Nena Pino [facility]) Smoking status: Never smoker Second hand tobacco smoke exposure: Yes Alcohol intake: never Substance use: never Substance use type: does not use Current Housing: Decline to Answer Concerned About Future Housing: Decline to Answer Difficulty Paying Gas/Electric Bills: Decline to Answer Difficulty Paying for Meds: Decline to Answer Currently Unemployed: Decline to Answer Education: Decline to Answer Difficulty w/ Childcare or Family Care: Decline to Answer Living arrangements: with family Additional living arrangements comments: Spiritual care concerns: No Meds Home Medications and Allergies Home Medications ?Medication ?Instructions ?Recorded ?Confirmed ?Type Pc Liver And Brain Support 1 cap PO DAILY 04/18/22 06/25/24 History Phytoceramides 1 cap PO DAILY 04/18/22 06/25/24 History multivitamin 1 tablet PO DAILY 04/18/22 06/25/24 History levothyroxine 75 mcg tablet 75 mcg PO DAILY #90 tabs 12/09/23 06/25/24 Rx losartan 50 mg-hydrochlorothiazide 1 tablet PO DAILY #90 tabs 12/18/23 06/25/24 Rx 12.5 mg tablet metoprolol succinate 100 mg 100 mg PO DAILY #90 tabs 02/24/24 06/25/24 Rx tablet,extended release 24 hr acetaminophen 650 mg 650 mg PO Q8H PRN pain 06/25/24 06/25/24 History tablet,extended release (8 Hour Pain Reliever) Allergies Allergy/AdvReac Type Severity Reaction Status Date / Time celecoxib Allergy Unknown Itching Verified 07/06/24 07:24 aspirin AdvReac Unknown Nausea Verified 07/06/24 07:24 atorvastatin AdvReac Unknown muscle Verified 07/06/24 07:24 cramps ezetimibe AdvReac Unknown leg cramps Verified 07/06/24 07:24 fenofibrate AdvReac Unknown Skin Verified 07/06/24 07:24 Reaction omega-3 acid ethyl esters AdvReac Unknown Nausea Verified 07/06/24 07:24 (Lovaza) pitavastatin (Livalo) AdvReac Unknown Nausea Verified 07/06/24 07:24 rosuvastatin AdvReac Unknown leg cramps Verified 07/06/24 07:24 simvastatin (Vytorin) AdvReac Unknown leg cramps Verified 07/06/24 07:24 Vital Signs Vital Signs - 24 hr 07/06/24 06:23 Temperature 97.6 F Pulse Rate 56 L Respiratory Rate 16 Blood Pressure 156/70 H Pulse Oximetry 96 Oxygen Delivery Room Air Exam Narrative: The patient's physical exam is essentially unchanged from prior examination on 06/01/24. Specifically, patient demonstrates normal lung capacity, tidal volume and respiratory rate without wheezes, crackles, rales or rubs. Heart rate and rhythm are regular without murmurs, gallops or rubs. No JVD. Pulses 2+ globally without increasing peripheral edema. AAOx3 with no evidence of confusion, intoxication or altered mental state, NC/AT without acute distress or altered consciousness. Speech, cognition, mood, insight and judgment at baseline and within normal limits. Assessment and Plan Assessment and plan (1) Dorsalgia: Code(s): M54.9 - Dorsalgia, unspecified Status: Acute (2) Lumbosacral spondylosis: Code(s): M47.817 - Spondylosis without myelopathy or radiculopathy, lumbosacral region Status: Acute (3) Sacroiliitis: Code(s): M46.1 - Sacroiliitis, not elsewhere classified Status: Acute Assessment and Plan: proceed as planned with minimally invasive posterior SI arthrodesis with lateral transfixation (Nevro1) of the left Sacroiliac joint under fluoroscopic guidance. (4) Arthropathy of sacroiliac joint: Code(s): M47.818 - Spondylosis without myelopathy or radiculopathy, sacral and sacrococcygeal region Status: Acute (5) Chronic pain: Code(s): G89.29 - Other chronic pain Status: Acute
--- NOTE | 2024-07-06 08:15 | WPDHPUPDATE1 ---
History and Physical Update Update Date/Time: 07/06/24 08:15 History and Physical has been reviewed, including an updated exam of the patient. There are NO changes in the patient's condition. Risks, benefits, and alternatives have been discussed and questions answered. Patient agrees to proceed with procedure.
--- NOTE | 2024-07-06 08:19 | W.PM.PROC2 ---
Procedure Note - Detailed Date of Procedure 07/06/24 Pre-op Diagnosis sacroilitis,spondylosis w/o myelopathy or radiculo Post-op Diagnosis Same Procedure Performed Minimally Invasive Posterior SI Joint Arthrodesis with Lateral Transfixation (Nevro1) of the Left Sacroiliac Joint with Fluoroscopy. Surgeon Harrison Hoover MD Hospital Attendant None. Anesthesia General Indications INDICATIONS:? Risks, benefits, and alternatives to the procedure were discussed in detail with the patient, who expressed explicit understanding and consent to proceed.? Risks discussed with the patient included but were not limited to risk of serious local or systemic infection, bleeding/bruising, scarring/deformity, immediate or delayed allergic reaction, decreased mobility, fusion failure or failure to treat pain, inadvertent neurologic injury resulting in increased pain, weakness/paralysis, or numbness, inadvertent organ injury, allergic reaction, migration or erosion of implant and/or need for repeat surgery, heart attack, stroke, seizure, coma, .? Anesthetic risks were also briefly discussed.? The patient expressed understanding and consent to proceed, agreeing that potential benefits outweigh risk of harm.? All materials required for the procedure were immediately available prior to procedure start.? Site and side were confirmed with the patient, compared carefully to the patient chart and consent, and marked prior to transport to the operating room.? Appropriate time out procedure was performed per protocol prior to procedure start. Description of Procedure PROCEDURE IN DETAIL:? The patient was brought to the operative suite and placed in the supine position.? Appropriate ASA standard monitors were attached. Anesthesia was initiated without difficulty or event. Eyes were protected.? Patient was transitioned to the prone position. Pressure points were padded with joints in neutral position.? Eyes, breasts and genitalia were checked and were free from undue pressure. Skin overlying the procedure site was marked with sterile marker.? Surgical area was prepped then draped in a typical sterile fashion with tinted ChloraPrep applicator and allowed to dry for at least 3 minutes.? The left SI joint was identified in the AP fluoroscopic view en face with the posterior wall of the sacrum.? Contralateral oblique view with cephalad angulation was acquired with perfect alignment of the superior S1 endplate. ?Midportion of the targeted SI joint was identified and marked with a sterile skin marker.? After identifying the intended incision site, the area was anesthetized by infiltration with no more than 5ml of a 1:1 admixture of 0.5% bupivacaine with epinephrine and 2% lidocaine with epinephrine via a 27-gauge needle after negative aspiration.? A 22-gauge spinal needle was used to provide additional and adequate local anesthesia by injecting no more than 5 ml of the same local anesthetic mixture at the level of the subcutaneous tissues, gluteal fascia and the periosteum of the sacrum/ilium after negative aspiration.? Using a #15 scalpel blade, a stab incision was mad to allow access with the joint finder.? This was sharply dissected to the joint space. The Nevro1 kit was opened, and the included guide pin/joint finder was advanced medial to lateral into the posterior SI joint both by feel and under direct and indirect visualization.? Once seated, appropriate placement, including trajectory and depth, was confirmed in the AP, lateral and contralateral oblique inlet view. A 2-inch incision was then made overlying the surgical site, large enough to accommodate the working channel.? The wound was dissected to gluteal fascia using a combination of sharp and blunt dissection.?Gluteal fascia was then incised and divided revealing the posterior surface of the SI joint. Hemostasis was obtained and confirmed.? An initial dilator was placed over the pin, manually advanced to periosteum and further advanced with a medium surgical mallet past the posterior portion of the SI joint until prongs were advanced into the midportion of the joint, careful not to advance forward past the anterior sacral border or above the sacral prominence, in the lateral view.?The working cannula was advanced over the entire apparatus until prongs were positioned within the joint space just deep to the dilator. ?The appropriate position of the working channel within the SI joint space was confirmed in the AP, contralateral oblique and contralateral oblique inlet views.? Once seated, pin and dilator were carefully removed with a slap hammer, taking care not to retract the working cannula. A drill guide was placed within the working cannula and initial decortication was accomplished with serial advancements of a decortication hand drill with ratcheting handle in the lateral fluoroscopic view, taking care not to advance beyond the anterior extension of the working cannula.? A box chisel was used for final decortication along the entire width of the working cannula. Implant trial was placed within the defect to size the implant.? A 9mm implant was selected and advanced via the implant global director air and climate change into appropriate position through the working cannula and within the joint space. Lateral transfixation anchors were deployed and locked into place.? The global director air and climate change was then released and withdrawn, leaving the implant in perfect final position as confirmed in both the AP and lateral views. The working cannula was withdrawn and hemostasis obtained and confirmed. The wound was then irrigated with copious amounts of Irricept 0.5% chlorhexidine irrigation solution, which was allowed to sit within the surgical site for 1 minute before evacuation.? Hemostasis was confirmed.? Wound was primarily closed in a layered fashion using interrupted 0 vicryl for the fascial layer, interrupted 2-0 undyed vicryl for subcutaneous layers and running 4-0 monocryl for superficial dermal closure.? Wound glue was used to seal the epidermis. The wound was then covered with Telfa and Tegaderm.? The patient was converted to the supine position and transported to the recovery area, having tolerated the procedure well with no evidence of complication. The patient was instructed to utilize a walker when ambulating, maintaining contralateral weightbearing during ambulation for the next 2 weeks.? The patient is to maintain the current dressing and sponge bathe only for 1 week, then can remove the original dressing.? ?Once removing the outer bandage, the patient will cover the incision with clean gauze and paper tape as needed changing daily or when soiled.? The patient understands they should avoid soaking or submerging the incision for 2 weeks and can resume showers after 1 week.? Instructions were provided to the patient in both verbal and written form, which the patient reviewed and signed prior to discharge.? The patient was instructed to watch for signs of infection including fevers, chills, night sweats, new neurologic deficit, increased pain, discharge, bleeding, swelling, opening of or unusual warmth at the incision site.? Patient was instructed to avoid activities that might stress or strain the back, such as heavy lifting, repetitive lifting, reaching, stairs, running, jumping, falls, etc.? They are to call our office or report directly to the Emergency Department immediately should there be any signs/symptoms of complications such as the above or any urgent/emergent changes in their condition. COMMENTS:?None. COMPLICATIONS:?None. DRAINS/PACKING:?None. SPECIMEN:?None. ESTIMATED BLOOD LOSS:?10 mL IV FLUIDS:?On chart. Implants Nevro 1 9mm Implant Pathology None sent Complications No immediate complications Condition Stable Disposition PACU [facility] Billing Surgery - Charge Forward: Surgery Billing
[2024-07-06] MEDS: ceFAZolin 2 GM/D5W 50 ML 2 GM/50 ML BAG IVPB (08:30)
[2024-07-06] MEDS: BUPIVACAINE/EPINEPHRINE 0.5% 50 ML VIAL 30 ML INFILTRATE (08:46)
[2024-07-06] MEDS: IRRISEPT 450 ML IRRIGATION BOTTLE IRRIGATION (10:20)
[2024-07-06] MEDS: oxyCODONE HCL (*CRX) 5 MG TAB IR PO (12:18)
== END 2024-07-06 13:17 | disposition home or self-care (01) ==
PROVIDERS: PCP Student in an Organized Health Care Education/Training Program; Visit Provider Anesthesiology Pain Medicine
PROC: (CPT 27279; principal; 2024-07-06 08:15)
DX: M46.1 Sacroiliitis, not elsewhere classified (principal); M47.817 Spondylosis without myelopathy or radiculopathy, lumbosacral region; M47.818 Spondylosis without myelopathy or radiculopathy, sacral and sacrococcygeal region; G89.29 Other chronic pain
CPT/HCPCS: 27279; 99199; A9270; J0330; J0690; J1100; J2003; J2371; J2405; J2704; J3010; J7120

== ENCOUNTER 2024-07-15 12:43 | Outpatient (CLI) | payer MEDICARE, SELFPAY ==
[2024-07-15 21:39] LABS: Thyroid Stimulating Hormone 0.345 uIU/mL (0.465-4.680)
== END 2024-07-15 12:44 | disposition home or self-care (01) ==
LOC: ANHGOSHLAB 12:45
PROVIDERS: PCP Student in an Organized Health Care Education/Training Program; Visit Provider Family Medicine
DX: E03.9 Hypothyroidism, unspecified (principal)
CPT/HCPCS: 36415; 84443

== ENCOUNTER 2024-12-22 08:29 | Outpatient (CLI) | payer MEDICARE, SELFPAY ==
--- NOTE | ~2024-12-22 | XR_ITS ---
EXAMINATION: XR lg joint inject/asp w image DATE: 12/22/2024 09:57 INDICATION: Left hip arthritis with pain TECHNIQUE: A time-out was performed to verify the patient's name, date of , and procedure to be performed. The procedure including the risks, benefits, and alternatives was discussed with the patient. Risks discussed included bleeding and infection. The patient understood the risks and agreed to proceed. The skin overlying the left hip joint was prepped and draped in usual sterile fashion. Anesthetic was administered with 1% lidocaine subcutaneously. A 22 G needle was advanced under fluoroscopic guidance into the joint. Injection of 1 mL of Omnipaque 240 confirmed intra-articular position of the needle. Subsequently, injectate consisting of 3 mm a 2:1 mixture of 0.5% bupivacaine: 80 mg/mL Depo-Medrol for a total dosage of 80 mg Depo-Medrol was instilled. Washout of contrast was seen confirming intra-articular administration. The needle was removed and the entry site was cleaned and dr essed. There were no immediate complications. Fluoroscopy exposure time was 0.1 minutes. The total number of images was 2. Total DAP was 0.884 Gycm^2. FINDINGS: Real-time fluoroscopy demonstrates the needle and contrast in the left hip joint. Patient's pain prior to procedure:3. Patient's pain following the procedure: 04/26. IMPRESSION: 1. Successful left hip joint injection of local anesthetic and steroid with decrease in the patient's presenting pain. Reviewed, dictated and finalized at location A. IMPRESSION: 1. Successful left hip joint injection of local anesthetic and steroid with dec rease in the patient's presenting pain.
== END 2024-12-22 08:30 | disposition home or self-care (01) ==
PROVIDERS: PCP Student in an Organized Health Care Education/Training Program; Visit Provider Orthopaedic Surgery
DX: M16.12 Unilateral primary osteoarthritis, left hip (principal)
CPT/HCPCS: 20610; 77002; J1010

== ENCOUNTER 2025-02-28 09:59 | Outpatient (CLI) | payer MEDICARE, SELFPAY ==
--- NOTE | ~2025-02-28 | DEXA_ITS ---
Bone Density Report Name: ZULLY CASTAÑEDA Age: 74 Sex: Female Ethnicity: White Date of : 1950 Indication: postmenopausal; screening for osteoporosis; hysterectomy; Referring Provider: CARINA GLOVER Study: Bone densitometry was performed. Exam Date: February 28, 2025 Accession number: [id number] Bone Density: Region BMD T-score Z-score Classification AP Spine(L1-L4) 1.163 1.1 3.4 Normal Femoral Neck (Left) 0.864 0.1 2.1 Normal Total Hip (Left) 1.014 0.6 2.3 Normal Femoral Neck (Right) 0.677 -1.5 0.5 Osteopenia Total Hip (Right) 0.879 -0.5 1.2 Normal Total Hip Mean 0.947 0.1 1.8 Normal World Health Organization criteria for BMD impression classify patients as: Normal (T-score at or above -1.0), Osteopenia (T-score between -1.0 and -2.5), or Osteoporosis (T-score at or below -2.5). 10-year Fracture Risk(1): Major Osteoporotic Fracture 10% Hip Fracture 1.8% Reported Risk Factors: [place] (), Neck BMD=0.677, BMI=35.6 (1) FRAX(R) Version 3.08. Fracture probability calculated for an untreated patient. Fracture probability may be lower if the patient has received treatment. Previous Exams: Region Exam Age BMD T-score BMD Change BMD Change Date g/cm2 vs Baseline vs Previous AP Spine (L1-L4) 02/28/2025 74 1.163 1.1 -0.109 (-8.5%) -0.109 (-8.5%) 02/16/2016 65 1.271 2.0 Total Hip(Left) 02/28/2025 74 1.014 0.6 -0.218 (-17.7% -0.218 (-17.7% 02/16/2016 65 1.233 2.4 Total Hip(Right) 02/28/2025 74 0.879 -0.5 -0.210 (-19.3% -0.210 (-19.3% 02/16/2016 65 1.089 1.2 *Denotes significance at 95% confidence level, LSC for AP Spine = 0.022 g/cm2, LSC for Total Hip = 0.027 g/cm2 Clinical Information Provided by Patient: Has used the following medications: Vitamin D Has the following medical conditions: Hysterectomy Patient maximum height was 67.0 No regular weight bearing exercise Does not regularly consume dairy products Drinks caffeinated beverages Onset of menses at age 14 Number of children 0 Impression: The patient has low bone mass, based on the Right Femoral Neck T-score. The patient has an estimated ten-year risk of hip fracture of 1.8% and an estimated ten-year risk of major fracture of 10%, based on the WHO FRAX algorithm. The BMD for the AP Spine (L1-L4) decreased, changing by -8.5% since the last DXA exam. The BMD for the Total Hip(Left) decreased, changing by -17.7% since the last DXA exam. The BMD for the Total Hip(Right) decreased, changing by -19.3% since the last DXA exam. Discussion: BONE DENSITY IS LOW AT ONE OR MORE SKELETAL SITES. This patient's lowest T-score is low at one or more skeletal sites. It meets the World Health Organization's (WHO) criteria for ?low bone mass? (T-score between -1.0 and -2.5). The patient's 10-year risk of fracture as calculated by FRAX is less than the threshold where pharmacological therapy is recommended by the National Osteoporosis Foundation (NOF). However, all treatment decisions require clinical judgment and consideration of individual patient factors, including patient preferences, comorbidities, previous drug use, risk factors not captured in the FRAX model (e.g., frailty, falls, vitamin D deficiency, increased bone turnover, interval significant decline in bone density) and possible under or overestimation of fracture risk by FRAX. The patient should follow a healthful lifestyle (good nutrition with adequate calcium and vitamin D, and appropriate weight-bearing exercise). Follow-Up: Consider repeating this study in 2 years to reassess this patient's status, or sooner if there is some new clinical indication. Reported by: LAMIN on 02/28/2025 10:45:00 AM. Reviewed, dictated and finalized at location A.
== END 2025-02-28 10:00 | disposition home or self-care (01) ==
PROVIDERS: PCP Family Medicine; Visit Provider Student in an Organized Health Care Education/Training Program
DX: Z78.0 Asymptomatic menopausal state (principal); M85.851 Other specified disorders of bone density and structure, right thigh
CPT/HCPCS: 77080